=== PATIENT | male | born 1950 | race Caucasian/White ===

== ENCOUNTER 2016-11-13 09:48 | Emergency (ER) | payer OTHER ==
--- NOTE | 2016-11-13 10:09 | EDM.PDOC ---
ED HPI GENERAL MEDICAL PROBLEM - General Chief Complaint: Upper Extremity Injury/Pain Stated Complaint: RUE pain Time Seen by Provider: 11/13/16 10:09 Source of Information: Reports: Family (), Old Records ([facility] chart/EMR) History Limitations: Reports: No Limitations - History of Present Illness INITIAL COMMENTS - FREE TEXT/NARRATIVE: The patient was brought to the emergency room via private automobile by his for evaluation of persistent intermittent right elbow and forearm pain with some swelling [place] about 15:00 hours on 11/09/16. Patient was using a wrench on the tractor when the wrench slipped off and he hit his right elbow on the tractor battery. No significant immediate symptoms, however subsequent progressive right elbow and forearm pain with some mild swelling. No previous injury or fracture to this extremity with the patient being right-handed. Symptoms have been refractory to ice therapy and OTC Tylenol use with patient also taking 400 mg of Advil at 6 AM this morning. He denies any paresthesias, neurological deficits, or other complaints or injuries. The patient denies any chest pain/pressure, heart flutter, dizziness, orthostasis, orthopnea, diaphoresis, paresthesias, recent decreased exercise tolerance, or any other anginal-type symptoms. No recent history of abdominal pain, heartburn, nausea, diarrhea, melena, gross hematochezia, or any food intolerance, including fatty foods, etc.. The patient also denies any recent fever, cough, wheezing, dyspnea, etc.. Onset: Sudden Onset Date: 11/09/16 Onset Time: 15:00 Duration: Getting Worse, Intermittent (With movement) Location: Reports: Upper Extremity, Right. Denies: Radiates to Quality: Reports: Same as Previous Episode, Throbbing Severity: Moderate Improves with: Reports: Rest Worsens with: Reports: Movement Context: Reports: Trauma (As above) Associated Symptoms: Denies: Confusion, Chest Pain, Cough, Diaphoresis, Fever/ Chills, Nausea/Vomiting, Seizure, Shortness of Breath, Syncope, Weakness Treatments VISUAL ARTIST: Reports: Acetaminophen, Cold Therapy, NSAIDS Right Elbow Pain Score (Numeric/FACES): 5 - Related Data Allergies Allergy/AdvReac Type Severity Reaction Status Date / Time No Known Allergies Allergy Verified 08/28/15 10:05 Home Meds: Home Meds Aspirin 81 mg PO QAM 01/25/15 [History] Metoprolol Succinate [Toprol XL] 50 mg PO QPM 01/25/15 [History] Ranitidine [Zantac] 150 mg PO QPM 01/25/15 [History] Losartan [Cozaar] 50 mg PO DAILY 08/14/15 [History] Acetaminophen [Tylenol Arthritis] 2 tab PO BID 12/26/15 [History] Potassium 99 mg PO DAILY 12/26/15 [History] Febuxostat [Uloric] 20 mg PO BID 11/13/16 [History] Folic Acid 1 mg PO QAM 11/13/16 [History] Leflunomide 10 mg PO QAM 11/13/16 [History] predniSONE [Prednisone] 10 mg PO QAM 11/13/16 [History] Past Medical History HEENT History: Reports: Impaired Vision, Other (See Below). Denies: Allergic Rhinitis, Hard of Hearing Other HEENT History: Wears glasses Cardiovascular History: Reports: Arrhythmia, High Cholesterol, Hypertension, Other (See Below). Denies: [place] Other Cardiovascular History: Complete right bundle branch block diagnosed on with apparent subsequent negative heart catheterization as below Respiratory History: Reports: COPD, Other (See Below) Other Respiratory History: COPD and pulmonary fibrosis by chest x-ray with no current treatment Gastrointestinal History: Reports: GERD. Denies: Chronic Constipation, Chronic Diarrhea, Colon Polyp, Gastritis, GI Bleed, Hepatitis, Helicobacter Pylori, Pancreatitis, PUD Genitourinary History: Reports: None Musculoskeletal History: Reports: Arthritis, Back Pain, Chronic, Gout, Neck Pain , Chronic, Osteoarthritis, RA, Other (See Below). 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 Denies: Anxiety, Depression 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 Endocrine/Metabolic History: Reports: Other (See Below) Other Endocrine/Metabolic History: Hyperglycemia with no previous treatment Hematologic History: Reports: Blood Transfusion(s), Other (See Below) Other Hematologic History: Blood transfusion at age 13 secondary to head trauma as above Immunologic History: Reports: None Dermatologic History: Reports: Eczema Other Dermatologic History: Eczema not currently under therapy - Infectious Disease History Infectious Disease History: Reports: C-Difficile, Chicken Pox, Measles. Denies : Shingles - Past Surgical History Head Surgeries/Procedures: Reports: Other (See Below) Other Head Surgeries/Procedures: Right-sided skull plate secondary to trauma at age 13 as above - Past Imaging History Past Imaging History: Reports: Angiography (Heart catheterization on 01/25/15 versus 01/26/15), CAT Scan (CT of the head and sinuses on 10/10/11), Ultrasound ( Abdominal ultrasound on 07/18/07), Venous Doppler (Bilateral venous Doppler studies of the lower extremities on 04/08/15 with previous venous Doppler study of the right leg on 04/27/11) Social & Family History - Family History Family Medical History: Noncontributory Cardiac: Reports: Hypertension, Other (See Below) Other Cardiac Family History: Mother and paternal uncle with hypertension Respiratory: Reports: COPD, Other (See Below) Other Respiratory Family Hisory: Father with COPD and history of tobacco use Neurological: Reports: Parkinson's, Other (See Below) Other Neurological Family History: Paternal uncle with Parkinson's disease - Tobacco Use Smoking Status *Q: Former Smoker Tobacco Use Within Last Twelve Months: No Years of Tobacco use: 41 Packs/Tins Daily: 1 (Maximum use of 1.5 packs per day) Used Tobacco, but Quit: Yes Month Tobacco Last Used: Quit in 2008 Smoking Cessation Information Provided To Patient: No Second Hand Smoke Exposure: No Second Hand Smoke Education Provided: No - Caffeine Use Caffeine Use: Reports: Soda (With mixed drinks as below). Denies: Coffee, Energy Drinks, Tea - Alcohol Use Alcohol Use History: Yes Days Per Week of Alcohol Use: 7 (No previous DWIs, problems with alcohol abuse, etc.) Number of Drinks Per Day: 4 (Usually mixed drinks) Total Drinks Per Week: 28 Alcohol Use in Last Twelve Months: Yes Alcohol Use Frequency: Daily - Recreational Drug Use Recreational Drug Use: No Drug Use in Last 12 Months: No - Living Situation & Occupation Living situation: Reports: (1972, 3 children), with Family () Occupation: Employed ([employer]) Review of Systems - Review of Systems Review Of Systems: ROS reveals no pertinent complaints other than HPI. ED EXAM, GENERAL - Physical Exam Exam: See Below Exam Limited By: No Limitations General Appearance: Alert, WD/WN, No Apparent Distress Head: Atraumatic, Normocephalic Neck: Normal Inspection, Supple, Non-Tender, Full Range of Motion. No: Lymphadenopathy (L), Lymphadenopathy (R), Thyromegaly Respiratory/Chest: No Respiratory Distress, Lungs Clear, Normal Breath Sounds, No Accessory Muscle Use, Chest Non-Tender. No: Pleural Rub, Retractions Cardiovascular: Normal Peripheral Pulses, Regular Rate, Rhythm, No Edema, No Gallop, No JVD, No Murmur, No Rub. No: Gallop/S3, Gallop/S4, Friction Rub Peripheral Pulses: 4+: Radial (L), Radial (R) GI/Abdominal: Normal Bowel Sounds, Soft, Non-Tender, No Organomegaly, No Distention, No Abnormal Bruit, No Mass, Pelvis Stable. No: Guarding (Male) Exam: Deferred Rectal (Males) Exam: Deferred Back Exam: Normal Inspection, Full Range of Motion. No: CVA Tenderness (L), CVA Tenderness (R), Muscle Spasm Extremities: Normal Range of Motion, No Pedal Edema, Normal Capillary Refill, Joint Swelling (As below), Arm Pain (I'll palpation pain over the right olecranon with mild right elbow effusion and proximal right forearm swelling with no deformity, crepitation, or sign of fracture). No: Erick's Sign, Leg Pain, Increased Warmth Neurological: Alert, Oriented, CN II-XII Intact, Normal Cognition, Normal Gait, No Motor/Sensory Deficits Psychiatric: Normal Affect, Normal Mood Skin Exam: Warm, Dry, Intact, Normal Color, No Rash. No: Diaphoretic, Ecchymosis, Increased Warmth, Petechiae, Wound/Incision Lymphatic: No Adenopathy ED TRAUMA EXTREMITY PROCEDURES - Splinting Right Upper Extremity Pre-Procedure NV Status: Normal Post-Procedure NV Status: Normal Splint Material: Other (Preformed 6" x 30" fiberglass splint material secured with one 2 inch and an additional 6 inch Maulik wrap) Splint Design: Gutter (Long-arm) Applied & Form Fitted By: Provider Provider Post-Splint Application NV Check: NV Status Normal, Good Position Complications: No Course - Vital Signs Last Recorded V/S: Last Vital Signs Temp 36.2 C 11/13/16 11:37 Pulse 89 11/13/16 11:37 Resp 18 11/13/16 11:37 BP 142/77 H 11/13/16 11:37 Pulse Ox 98 11/13/16 11:37 Vital Signs - 24 hr 11/13/16 11/13/16 09:48 11:37 Temperature [ 36.5 C 36.2 C Oral] Pulse, 91 89 Peripheral [ Left Pulse Oximetry] Respiratory 18 18 Rate Blood Pressure 148/87 H 142/77 H [Left Upper Arm ] O2 Sat by Pulse 97 98 Oximetry - Orders/Labs/Meds Orders: Active Orders 24 hr Category Date Time Status Forearm 2V Rt [CR] Stat Exams 11/13/16 10:13 Taken Obtain Past Medical Record [OM.PC] Routine Oth 11/13/16 10:13 Active Labs: None Meds: None - Radiology Interpretation Free Text/Narrative:: X-rays of the right forearm, 2 views, shows evidence of a questionable artifact versus hairline fracture in the supracondylar region of the distal humerus with moderate osteoarthritic changes but no evidence of dislocation, angulation, etc. Departure - Departure Time of Disposition: 11:55 Disposition: Home, Self-Care 01 Condition: Good Clinical Impression: Peptic reflux disease, Complete left bundle branch block (LBBB), Hyperuricemia Contusion Qualifiers: Encounter type: initial encounter Contusion area: elbow Laterality: right Qualified Code(s): S50.01XA - Contusion of right elbow, initial encounter Hypertension Qualifiers: Hypertension type: essential hypertension Qualified Code(s): I10 - Essential ( primary) hypertension COPD (chronic obstructive pulmonary disease) Qualifiers: COPD type: emphysema Emphysema type: panlobular Qualified Code(s): J43.1 - Panlobular emphysema Osteoarthritis Qualifiers: Osteoarthritis location: multiple joints Osteoarthritis type: primary Qualified Code(s): M15.0 - Primary generalized (osteo)arthritis Rheumatoid arthritis Qualifiers: Rheumatoid arthritis location: multiple sites Rheumatoid factor presence: unspecified presence Qualified Code(s): M06.9 - Rheumatoid arthritis, unspecified - Discharge Information Instructions: Cast or Splint Care, [id number], Elbow Contusion Referrals: PCP,Unknown [Ordering Only Provider] - Forms: ED Department Discharge Additional Instructions: 1. Followup with your regular provider in 7 days as directed for reevaluation and possible repeat x-rays of your right forearm. 2. Tylenol 650 mg by mouth every 4 hours and/or OTC ibuprofen 2-3 tabs by mouth every 6 hours with food as directed./needed. 3. Limited use of the right arm as directed with long arm splint to be used at all times until otherwise directed by your regular provider 4. Heating pad, and/or ice packs with arm elevation and sling use as needed/as directed. - Problem List & Annotations (1) Contusion SNOMED Code(s): 820838376 Code(s): T14.8 - OTHER INJURY OF UNSPECIFIED BODY REGION Status: Acute Priority: High Current Visit: Yes Onset Date: 11/09/16 Annotation/Comment: : Questionable right supracondylar fracture as above, however likely artifact. Secondary to patient's symptomatology and persistent forearm swelling the patient was placed in a long arm splint as above with activity restrictions, splint care, etc. extensively discussed. Close follow-up by his regular provider and otherwise symptomatic relief as per discharge instructions. Qualifiers: Encounter type: initial encounter Contusion area: elbow Laterality: right Qualified Code(s): S50.01XA - Contusion of right elbow, initial encounter (2) Hypertension SNOMED Code(s): 95567965 Code(s): I10 - ESSENTIAL (PRIMARY) HYPERTENSION Status: Chronic Priority : Low Current Visit: Yes Annotation/Comment:: Blood pressure stable in the emergency room and otherwise stable by history Qualifiers: Hypertension type: essential hypertension Qualified Code(s): I10 - Essential (primary) hypertension (3) Complete left bundle branch block (LBBB) SNOMED Code(s): 7694176 Code(s): I44.7 - LEFT BUNDLE-BRANCH BLOCK, UNSPECIFIED Status: Chronic Priority: Low Current Visit: Yes Onset Date: 01/25/15 Annotation/Comment: : No recent chest pain or anginal complaints (4) COPD (chronic obstructive pulmonary disease) SNOMED Code(s): 05427489 Code(s): J44.9 - CHRONIC OBSTRUCTIVE PULMONARY DISEASE, UNSPECIFIED Status : Chronic Priority: Low Current Visit: Yes Annotation/Comment:: COPD and pulmonary fibrosis per distant chest x-ray with no treatment to this point and no evidence of previous PFT. No current bronchitic type symptoms, fever, etc. Qualifiers: COPD type: emphysema Emphysema type: panlobular Qualified Code(s): J43.1 - Panlobular emphysema (5) Peptic reflux disease SNOMED Code(s): 02667257 Code(s): K21.9 - GASTRO-ESOPHAGEAL REFLUX DISEASE WITHOUT ESOPHAGITIS Status: Chronic Priority: Low Current Visit: Yes Annotation/Comment:: Stable with current OTC Zantac therapy by history. Distant H. pylori was negative (6) Osteoarthritis SNOMED Code(s): 964095606 Code(s): M19.90 - UNSPECIFIED OSTEOARTHRITIS, UNSPECIFIED SITE Status: Chronic Priority: Medium Current Visit: Yes Annotation/Comment:: Otherwise stable by history with no recent history of gout attacks Qualifiers: Osteoarthritis location: multiple joints Osteoarthritis type: primary Qualified Code(s): M15.0 - Primary generalized (osteo)arthritis (7) Rheumatoid arthritis SNOMED Code(s): 13786288 Code(s): M06.9 - RHEUMATOID ARTHRITIS, UNSPECIFIED Status: Chronic Priority: Medium Current Visit: Yes Annotation/Comment:: Stable by history Qualifiers: Rheumatoid arthritis location: multiple sites Rheumatoid factor presence: unspecified presence Qualified Code(s): M06.9 - Rheumatoid arthritis, unspecified - Problem List Review Problem List Initiated/Reviewed/Updated: Yes - My Orders Last 24 Hours: My Active Orders 11/13/16 10:13 Forearm 2V Rt [CR] Stat Obtain Past Medical Record [OM.PC] Routine - Assessment/Plan Last 24 Hours: My Active Orders 11/13/16 10:13 Forearm 2V Rt [CR] Stat Obtain Past Medical Record [OM.PC] Routine Assessment:: As above Plan: As above. Extensive precautions were given to the patient and his , who are agreement with the treatment plan. See Patient Instructions for further treatment and plan.
[2016-11-13 11:38] VITALS: BP 142/77
== END 2016-11-13 11:55 | disposition home or self-care (01) ==
LOC: LL.ED 09:48
DX: S50.01XA Contusion of right elbow, initial encounter (principal); I44.7 Left bundle-branch block, unspecified; J43.1 Panlobular emphysema; E79.0 Hyperuricemia without signs of inflammatory arthritis and tophaceous disease; M15.0 Primary generalized (osteo)arthritis; M06.9 Rheumatoid arthritis, unspecified; E78.00 Pure hypercholesterolemia, unspecified; I10 Essential (primary) hypertension; Z79.82 Long term (current) use of aspirin; Z87.891 Personal history of nicotine dependence; Z79.899 Other long term (current) drug therapy; W22.8XXA Striking against or struck by other objects, initial encounter
CPT/HCPCS: 73090-RT; 99282; 99284

== ENCOUNTER 2017-01-03 10:28 | Emergency (ER) | payer OTHER ==
--- NOTE | 2017-01-03 11:28 | EDM.PDOC ---
ED HPI GENERAL MEDICAL PROBLEM - General Chief Complaint: General Stated Complaint: Fever, Body Aches Time Seen by Provider: 01/03/17 11:02 Source of Information: Reports: Patient, Family History Limitations: Reports: No Limitations - History of Present Illness INITIAL COMMENTS - FREE TEXT/NARRATIVE: Patient brought in by private vehicle for complaint of fatigue and generalized aches. Has some "pressure" sensation in chest. When visiting with nurse, he described it as a congestion feeling. However patient denied congestion with jingle writer. He has a chronic cough. That has not changed. Decreased appetite. Weaker. Denies headache. No HEENT changes. No SOB or respiratory changes other than the pressure sensation discussed above. GI negative for nausea/emesis/bowel changes/abdominal pain. No changes. No acute swelling or edema. No skin changes. Patient does report visual issues with left eye that have been present for months and are being worked up. Also has some residual swelling in right hand after wearing splint on right arm this past spring. Has rheumatoid arthritis and is on medications for this. Generalized Pain Score (Numeric/FACES): 6 - Related Data Allergies Allergy/AdvReac Type Severity Reaction Status Date / Time No Known Allergies Allergy Verified 08/28/15 10:05 Home Meds: Home Meds Aspirin 81 mg PO QAM 01/25/15 [History] Metoprolol Succinate [Toprol XL] 50 mg PO QPM 01/25/15 [History] Ranitidine [Zantac] 150 mg PO QPM 01/25/15 [History] Losartan [Cozaar] 50 mg PO DAILY 08/14/15 [History] Potassium 99 mg PO DAILY 12/26/15 [History] Febuxostat [Uloric] 20 mg PO BID 11/13/16 [History] Folic Acid 1 mg PO QAM 11/13/16 [History] Leflunomide 20 mg PO QAM 11/13/16 [History] predniSONE [Prednisone] 5 mg PO QAM 11/13/16 [History] Doxycycline [Vibramycin] 100 mg PO Q12HR #30 cap 01/03/17 [Rx] Past Medical History HEENT History: Reports: Impaired Vision, Other (See Below) Other HEENT History: Wears glasses Cardiovascular History: Reports: Arrhythmia, High Cholesterol, Hypertension, Other (See Below) Other Cardiovascular History: Complete right bundle branch block diagnosed on with apparent subsequent negative heart catheterization as below Respiratory History: Reports: COPD, Other (See Below) Other Respiratory History: COPD and pulmonary fibrosis by chest x-ray with no current treatment Gastrointestinal History: Reports: GERD Genitourinary History: Reports: None Musculoskeletal History: Reports: Arthritis, Back Pain, Chronic, Gout, Neck Pain , Chronic, Osteoarthritis, RA, Other (See Below) Other Musculoskeletal History: Hyperuricemia without history of gout Neurological History: Reports: Brain Injury, Concussion, Head Trauma, Neuropathy , Peripheral, Other (See Below) Other Neuro History: Head concussion at age 13 with metallic plate placed secondary to skull fracture with partial left-sided hemiparesis for about 1 week with no significant remaining deficits, 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 Psychiatric History: Reports: None, Other (See Below) 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 Endocrine/Metabolic History: Reports: Other (See Below) Other Endocrine/Metabolic History: Hyperglycemia with no previous treatment Hematologic History: Reports: Blood Transfusion(s), Other (See Below) Other Hematologic History: Blood transfusion at age 13 secondary to head trauma as above Immunologic History: Reports: None Dermatologic History: Reports: Eczema Other Dermatologic History: Eczema not currently under therapy - Infectious Disease History Infectious Disease History: Reports: C-Difficile, Chicken Pox, Measles - Past Surgical History Head Surgeries/Procedures: Reports: Other (See Below) - Past Imaging History Past Imaging History: Reports: Angiography (Heart catheterization on 01/25/15 versus 01/26/15), CAT Scan (CT of the head and sinuses on 10/10/11), Ultrasound ( Abdominal ultrasound on 07/18/07), Venous Doppler (Bilateral venous Doppler studies of the lower extremities on 04/08/15 with previous venous Doppler study of the right leg on 04/27/11) Social & Family History - Family History Family Medical History: Noncontributory Cardiac: Reports: Hypertension, Other (See Below) Other Cardiac Family History: Mother and paternal uncle with hypertension Respiratory: Reports: COPD, Other (See Below) Other Respiratory Family Hisory: Father with COPD and history of tobacco use Neurological: Reports: Parkinson's, Other (See Below) Other Neurological Family History: Paternal uncle with Parkinson's disease - Tobacco Use Smoking Status *Q: Former Smoker Years of Tobacco use: 41 Packs/Tins Daily: 1 Used Tobacco, but Quit: Yes Month Tobacco Last Used: Quit in 2008 Second Hand Smoke Exposure: No - Caffeine Use Caffeine Use: Reports: Soda - Alcohol Use Days Per Week of Alcohol Use: 7 Number of Drinks Per Day: 4 Total Drinks Per Week: 28 - Recreational Drug Use Recreational Drug Use: No Drug Use in Last 12 Months: No - Living Situation & Occupation Living situation: Reports: (1972, 3 children), with Family () Occupation: Employed ([employer]) ED ROS GENERAL - Review of Systems Review Of Systems: See Below Constitutional: Reports: Chills, Malaise, Weakness, Fatigue, Decreased Appetite. Denies: Fever (has felt warm sometimes, but no measured fever), Night Sweats, Diaphoresis, Weight Loss, Weight Gain HEENT: Reports: No Symptoms Respiratory: Reports: Cough (has chronic unchanged cough). Denies: Shortness of Breath, Wheezing, Pleuritic Chest Pain, Sputum, Hemoptysis Cardiovascular: Reports: Other (see HPI for fullness sensation). Denies: Chest Pain, Dyspnea on Exertion, Edema, Lightheadedness, Orthopnea, Palpitations Endocrine: Reports: No Symptoms GI/Abdominal: Reports: No Symptoms. Denies: Abdominal Pain, Constipation, Diarrhea, Nausea, Vomiting : Reports: No Symptoms Musculoskeletal: Reports: Muscle Pain (generalized achiness all over). Denies: Joint Swelling, Muscle Stiffness Skin: Reports: No Symptoms. Denies: Rash Neurological: Reports: Weakness. Denies: Confusion, Dizziness, Headache, Paresthesia, Seizure, Syncope, Tingling, Tremors, Trouble Speaking, Difficulty Walking, Change in Speech, Gait Disturbance Psychiatric: Reports: No Symptoms Hematologic/Lymphatic: Reports: No Symptoms ED EXAM, GENERAL - Physical Exam Exam: See Below Exam Limited By: No Limitations General Appearance: Alert, No Apparent Distress, Obese Eye Exam: Bilateral Eye: EOMI, Normal Inspection, PERRL Ears: Normal External Exam, Normal Canal, Hearing Grossly Normal, Normal TMs Nose: Normal Inspection, Normal Mucosa, No Blood Throat/Mouth: Normal Inspection, Normal Lips, Normal Teeth, Normal Gums, Normal Oropharynx, Normal Voice Head: Atraumatic, Normocephalic Neck: Normal Inspection, Supple, Non-Tender, Full Range of Motion. No: Carotid Bruit, Lymphadenopathy (L), Lymphadenopathy (R) Respiratory/Chest: No Respiratory Distress, Lungs Clear, Normal Breath Sounds, No Accessory Muscle Use, Chest Non-Tender Cardiovascular: Normal Peripheral Pulses, Regular Rate, Rhythm, No Edema, No JVD , No Murmur Peripheral Pulses: 2+: Radial (L), Radial (R) GI/Abdominal: Normal Bowel Sounds, Soft, Non-Tender, No Distention, No Mass (Male) Exam: Deferred Rectal (Males) Exam: Deferred Back Exam: Normal Inspection. No: CVA Tenderness (L), CVA Tenderness (R), Muscle Spasm, Paraspinal Tenderness, Vertebral Tenderness Extremities: Normal Inspection, Normal Range of Motion, Non-Tender, No Pedal Edema, Normal Capillary Refill Neurological: Alert, Oriented, Normal Cognition, No Motor/Sensory Deficits Psychiatric: Normal Affect, Normal Mood Skin Exam: Warm, Dry, Intact, Normal Color Course - Vital Signs Last Recorded V/S: Last Vital Signs Temp 36.8 C 01/03/17 10:31 Pulse 76 01/03/17 12:15 Resp 16 01/03/17 12:15 BP 157/79 H 01/03/17 12:15 Pulse Ox 99 01/03/17 11:45 - Orders/Labs/Meds Orders: Active Orders 24 hr Category Date Time Status Chest 2V [CR] Stat Exams 01/03/17 11:21 Taken LYME/B.BURGDORFERI IGG/IGM [REF] Stat Lab 01/03/17 11:45 Received [facility] IGM [REF] Routine Lab 01/03/17 11:45 Received Labs: Laboratory Tests 01/03/17 01/03/17 01/03/17 Range/Units 11:45 11:45 11:45 WBC 7.7 (4.0-10.2) K/uL RBC 4.35 (4.33-5.41) M/uL Hgb 13.6 (13.1-16.8) g/dL Hct 40.9 (39.0-49.0) % MCV 94.0 D (84.0-98.0) fL MCH 31.3 (28.2-33.3) pg MCHC 33.3 (31.7-36.0) g/dL RDW 14.4 H (11.2-14.1) % Plt Count 218 (150-350) K/uL Neut % (Auto) 75.9 (45.0-80.0) % Lymph % (Auto) 10.1 (10.0-50.0) % [place] % (Auto) 11.5 (2.0-14.0) % Eos % (Auto) 2.1 (0.0-5.0) % Baso % (Auto) 0.4 (0.0-2.0) % Neut # (Auto) 5.88 (1.40-7.00) K/uL Lymph # (Auto) 0.78 (0.50-3.50) K/uL Bremer # (Auto) 0.89 (0.00-1.00) K/uL Eos # (Auto) 0.16 (0.00-0.50) K/uL Baso # (Auto) 0.03 (0.00-0.20) K/uL Sodium 139 (136-145) mmol/L Potassium 3.8 (3.5-5.1) mmol/L Chloride 100 (98-107) mmol/L Carbon Dioxide 28.6 (21.0-32.0) mmol/L BUN 14 (7-18) mg/dL Creatinine 0.85 (0.51-1.17) mg/dL Est Cr Clr Drug Dosing 95.76 mL/min Estimated GFR (MDRD) > 60 mL/min Glucose 120 H (74-106) mg/dL Lactic Acid 1.7 (0.4-2.0) mmol/L Calcium 9.2 (8.5-10.1) mg/dL Total Bilirubin 0.8 (0.2-1.0) mg/dL AST 26 (15-37) U/L ALT 22 (12-78) U/L Alkaline Phosphatase 90 (46-116) IU/L Creatine Kinase 72 (26-308) U/L Creatine Kinase Index 1.3 (0.0-2.5) % CK-MB (CK-2) 0.90 (0.00-3.60) ng/mL Troponin I 0.000 (0.000-0.056) ng/mL Total Protein 8.0 (6.4-8.2) g/dL Albumin 2.9 L (3.4-5.0) g/dL Specimen Type Urine Color Urine Appearance Urine pH (5.0-9.0) Ur Specific [place] (1.005-1.030) Urine Protein (NEGATIVE) mg/dL Urine Glucose (UA) (NEGATIVE) mg/dL Urine Ketones (NEGATIVE) mg/dL Urine Occult Blood (NEGATIVE) Urine Nitrite (NEGATIVE) Urine Bilirubin (NEGATIVE) Urine Urobilinogen (0.2-1.0) E.U./dL Ur Leukocyte Esterase (NEGATIVE) Urine RBC /HPF Urine WBC /HPF Ur Epithelial Cells /LPF Urine Bacteria (NONE TO FEW) /HPF Ethyl Alcohol 0.000 (0.000-0.080) g/dL 01/03/17 Range/Units 13:15 WBC (4.0-10.2) K/uL RBC (4.33-5.41) M/uL Hgb (13.1-16.8) g/dL Hct (39.0-49.0) % MCV (84.0-98.0) fL MCH (28.2-33.3) pg MCHC (31.7-36.0) g/dL RDW (11.2-14.1) % Plt Count (150-350) K/uL Neut % (Auto) (45.0-80.0) % Lymph % (Auto) (10.0-50.0) % Bre[place] % (Auto) (2.0-14.0) % Eos % (Auto) (0.0-5.0) % Baso % (Auto) (0.0-2.0) % Neut # (Auto) (1.40-7.00) K/uL Lymph # (Auto) (0.50-3.50) K/uL [place]mer # (Auto) (0.00-1.00) K/uL Eos # (Auto) (0.00-0.50) K/uL Baso # (Auto) (0.00-0.20) K/uL Sodium (136-145) mmol/L Potassium (3.5-5.1) mmol/L Chloride (98-107) mmol/L Carbon Dioxide (21.0-32.0) mmol/L BUN (7-18) mg/dL Creatinine (0.51-1.17) mg/dL Est Cr Clr Drug Dosing mL/min Estimated GFR (MDRD) mL/min Glucose (74-106) mg/dL Lactic Acid (0.4-2.0) mmol/L Calcium (8.5-10.1) mg/dL Total Bilirubin (0.2-1.0) mg/dL AST (15-37) U/L ALT (12-78) U/L Alkaline Phosphatase (46-116) IU/L Creatine Kinase (26-308) U/L Creatine Kinase Index (0.0-2.5) % CK-MB (CK-2) (0.00-3.60) ng/mL Troponin I (0.000-0.056) ng/mL Total Protein (6.4-8.2) g/dL Albumin (3.4-5.0) g/dL Specimen Type Urinblad Urine Color Yellow Urine Appearance Clear Urine pH 7.0 (5.0-9.0) Ur Specific [place] 1.020 (1.005-1.030) Urine Protein Trace H (NEGATIVE) mg/dL Urine Glucose (UA) Negative (NEGATIVE) mg/dL Urine Ketones Negative (NEGATIVE) mg/dL Urine Occult Blood Negative (NEGATIVE) Urine Nitrite Negative (NEGATIVE) Urine Bilirubin Small H (NEGATIVE) Urine Urobilinogen 0.2 (0.2-1.0) E.U./dL Ur Leukocyte Esterase Negative (NEGATIVE) Urine RBC 0-5 /HPF Urine WBC Not seen /HPF Ur Epithelial Cells Not seen /LPF Urine Bacteria Not seen (NONE TO FEW) /HPF Ethyl Alcohol (0.000-0.080) g/dL - Radiology Interpretation Free Text/Narrative:: No acute infiltrate noted on chest film. - Re-Assessments/Exams Free Text/Narrative Re-Assessment/Exam: 01/03/17 14:11 CBC, Chem, UA, Trop/CKMB overall normal. electrical fitter showed sinus rhythm. Vital signs stable. Patient afebrile. Non-focal exam. Not able to identify cause of patient's complaints. Cannot rule out viral syndrome. Given that he is outside most of the time, tick panel and West Nile added to labs. At this time plan is to discharge patient from ER and start him on course of Doxy. He and are to continue to observe for changes/new symptoms. They are to follow up in ER or clinic if worsening symptoms are noted or if he is not improved within 2-3 days. Departure - Departure Time of Disposition: 13:52 Disposition: Home, Self-Care 01 Condition: Good Clinical Impression: Weakness generalized, Generalized muscle ache - Discharge Information Prescriptions: Doxycycline [Vibramycin] 100 mg PO Q12HR #30 cap Instructions: Doxycycline tablets or capsules Referrals: Neris Renee PA [Primary Care Provider] - Forms: ED Department Discharge Additional Instructions: Observe for any additional changes. Follow up for recheck if you get worse. Follow up if symptoms are not improving within 2-3 days. - My Orders Last 24 Hours: My Active Orders 01/03/17 11:21 Chest 2V [CR] Stat 01/03/17 11:45 LYME/B.BURGDORFERI IGG/IGM [REF] Stat [facility] IGM [REF] Routine - Assessment/Plan Last 24 Hours: My Active Orders 01/03/17 11:21 Chest 2V [CR] Stat 01/03/17 11:45 LYME/B.BURGDORFERI IGG/IGM [REF] Stat [facility] IGM [REF] Routine
[2017-01-03 12:26] LABS: CHLORIDE,CL 100 mmol/L (98-107); SODIUM,NA 139 mmol/L (136-145)
[2017-01-03 16:01] VITALS: BP 147/77
== END 2017-01-03 14:00 | disposition home or self-care (01) ==
LOC: LL.ED 10:28
DX: R53.1 Weakness (principal); M79.1 Myalgia; H54.7 Unspecified visual loss; E78.00 Pure hypercholesterolemia, unspecified; I10 Essential (primary) hypertension; J44.9 Chronic obstructive pulmonary disease, unspecified; K21.9 Gastro-esophageal reflux disease without esophagitis; Z87.891 Personal history of nicotine dependence; Z79.82 Long term (current) use of aspirin; Z79.899 Other long term (current) drug therapy
CPT/HCPCS: 36415; 71020; 80053; 81001; 82550; 82553; 83605; 84484; 85025; 86618; 86788; 99284; G0480

== ENCOUNTER 2017-08-13 14:12 | Inpatient (IN) | payer OTHER ==
[2017-08-13] MEDS ORDERED: Sodium Chloride 0.9% 500 ML IV SCH (15:00)
[2017-08-13] MEDS ORDERED: Furosemide 20 MG/2 ML VIAL IVPUSH ONE (15:08)
[2017-08-13] MEDS ORDERED: Albuterol/Ipratropium 3.0-0.5 MG/3 ML Neb Soln NEB PRN (15:11)
[2017-08-13] MEDS: Sodium Chloride 0.9% 10 ML Syringe FLUSH PRN ×3 (16:01→21:39)
[2017-08-13] MEDS: cefTAZidime 1 GM Vial IVPUSH SCH (16:03)
[2017-08-13] MEDS: Albuterol/Ipratropium 3.0-0.5 MG/3 ML Neb Soln NEB SCH ×2 (16:03→20:52)
[2017-08-13] MEDS: Azithromycin 500 MG in Sodium Chloride 0.9% 250 ML IV SCH (16:05)
--- NOTE | 2017-08-13 16:16 | PCM.HP ---
H&P History of Present Illness - General Date of Service: 08/13/17 Admit Problem/Dx: Admission Diagnosis/Problem Admission Diagnosis/Problem Pneumonia Source of Information: Patient, Family History Limitations: Reports: No Limitations - History of Present Illness Onset of Symptoms: Reports: Gradual Symptom Onset Date: 07/30/17 Duration of Symptoms: Reports: Day(s): (was treated 2 wks ago for COPD exacerbation, symptoms improved then intermittently worsened until worst of all last night) Location: Reports: Chest Improves with: Reports: Rest Worsens with: Reports: Other (worse when laying down), Movement (SOB worsens with exertion) Associated Symptoms: Reports: Chest Pain (says "not really pain but pressure when laying flat"), Cough, Fever/Chills, Malaise, Shortness of Breath, Weakness - Related Data Allergies/Adverse Reactions: Allergies Allergy/AdvReac Type Severity Reaction Status Date / Time No Known Allergies Allergy Verified 08/28/15 10:05 Home Medications: Home Meds Aspirin 81 mg PO QAM 01/25/15 [History] Metoprolol Succinate [Toprol XL] 50 mg PO QPM 01/25/15 [History] Losartan [Cozaar] 50 mg PO DAILY 08/14/15 [History] Febuxostat [Uloric] 40 mg PO BID 11/13/16 [History] Folic Acid 1 mg PO QAM 11/13/16 [History] Leflunomide 20 mg PO QAM 11/13/16 [History] predniSONE [Prednisone] 10 mg PO QAM 11/13/16 [History] Budesonide/Formoterol Fumarate [Symbicort 80-4.5 Mcg Inhaler] 2 puff INH BID [History] Past Medical History HEENT History: Reports: Impaired Vision, Other (See Below) Other HEENT History: Wears glasses Cardiovascular History: Reports: Arrhythmia, High Cholesterol, Hypertension, Other (See Below) Other Cardiovascular History: Complete right bundle branch block diagnosed on with apparent subsequent negative heart catheterization as below Respiratory History: Reports: COPD, Other (See Below) Other Respiratory History: COPD and pulmonary fibrosis by chest x-ray with no current treatment Gastrointestinal History: Reports: GERD Genitourinary History: Reports: None Musculoskeletal History: Reports: Arthritis, Back Pain, Chronic, Gout, Neck Pain , Chronic, Osteoarthritis, RA, Other (See Below) Other Musculoskeletal History: Hyperuricemia without history of gout Neurological History: Reports: Brain Injury, Concussion, Head Trauma, Neuropathy , Peripheral, Other (See Below) Other Neuro History: Head concussion at age 13 with metallic plate placed secondary to skull fracture with partial left-sided hemiparesis for about 1 week with no significant remaining deficits, 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 Psychiatric History: Reports: None, Other (See Below) 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 Endocrine/Metabolic History: Reports: Other (See Below) Other Endocrine/Metabolic History: Hyperglycemia with no previous treatment Hematologic History: Reports: Blood Transfusion(s), Other (See Below) Other Hematologic History: Blood transfusion at age 13 secondary to head trauma as above Immunologic History: Reports: None Dermatologic History: Reports: Eczema Other Dermatologic History: Eczema not currently under therapy - Infectious Disease History Infectious Disease History: Reports: C-Difficile, Chicken Pox, Measles - Past Surgical History Head Surgeries/Procedures: Reports: Other (See Below) - Past Imaging History Past Imaging History: Reports: Angiography (Heart catheterization on 01/25/15 versus 01/26/15), CAT Scan (CT of the head and sinuses on 10/10/11), Ultrasound ( Abdominal ultrasound on 07/18/07), Venous Doppler (Bilateral venous Doppler studies of the lower extremities on 04/08/15 with previous venous Doppler study of the right leg on 04/27/11) Social & Family History - Family History Family Medical History: Noncontributory Cardiac: Reports: Hypertension, Other (See Below) Other Cardiac Family History: Mother and paternal uncle with hypertension Respiratory: Reports: COPD, Other (See Below) Other Respiratory Family Hisory: Father with COPD and history of tobacco use Neurological: Reports: Parkinson's, Other (See Below) Other Neurological Family History: Paternal uncle with Parkinson's disease - Tobacco Use Smoking Status *Q: Former Smoker Years of Tobacco use: 50 Packs/Tins Daily: 1 Used Tobacco, but Quit: Yes Month/Year Tobacco Last Used: 0 Second Hand Smoke Exposure: No - Caffeine Use Caffeine Use: Reports: Soda - Alcohol Use Days Per Week of Alcohol Use: 7 Number of Drinks Per Day: 3 Total Drinks Per Week: 21 Date of Last Drink: 08/12/17 - Recreational Drug Use Recreational Drug Use: No Drug Use in Last 12 Months: No - Living Situation & Occupation Living situation: Reports: (1972, 3 children), with Family () Occupation: Employed ([employer]) H&P Review of Systems - Review of Systems: Review Of Systems: ROS reveals no pertinent complaints other than HPI. Exam - Exam Exam: See Below - Vital Signs Vital Signs: Last Vital Signs Temp 98.5 F 08/13/17 15:55 Pulse 90 08/13/17 15:55 Resp 20 08/13/17 15:55 BP 151/94 H 08/13/17 15:55 Pulse Ox 92 L 08/13/17 15:55 Weight: 174 lb 1.6 oz - Exam Quality Assessment: Supplemental Oxygen (applied at [facility] after O2 sat 87% on RA) General: Alert, Oriented, Mild Distress HEENT: EOMI, Hearing Intact, Mucosa Moist & [place] Neck: Supple, Trachea Midline, 2 Lungs: Decreased Breath Sounds, Crackles, Wheezing (very faint wheezes) Cardiovascular: Regular Rate, Regular Rhythm GI/Abdominal Exam: Normal Bowel Sounds, Soft, Non-Tender (Male) Exam: Deferred Rectal (Males) Exam: Deferred Back Exam: Normal Inspection Extremities: No Pedal Edema Neuro Extensive - Mental Status: Alert, Oriented x3 Psychiatric: Alert, Anxious *Q Meaningful Use (ADM) - VTE *Q VTE Criteria *Q: - Stroke *Q Stroke Criteria *Q: - AMI *Q AMI Criteria *Q: - Problem List (1) Pneumonia SNOMED Code(s): 667076559 ICD Code: J18.9 - PNEUMONIA, UNSPECIFIED ORGANISM Status: Acute Priority : High Current Visit: Yes Qualifiers: Pneumonia type: due to unspecified organism Laterality: left Lung location: lower lobe of lung Qualified Code(s): J18.1 - Lobar pneumonia, unspecified organism (2) COPD (chronic obstructive pulmonary disease) SNOMED Code(s): 17093339 ICD Code: J44.9 - CHRONIC OBSTRUCTIVE PULMONARY DISEASE, UNSPECIFIED Status : Chronic Priority: High Current Visit: No Qualifiers: COPD type: emphysema Emphysema type: panlobular Qualified Code(s): J43.1 - Panlobular emphysema Problem List Initiated/Reviewed/Updated: Yes Orders Last 24hrs: Active Orders 24 hr Category Date Time Status Patient Status [ADT] Routine ADT 08/13/17 14:43 Active Antiembolic Devices [RC] 08,20 Care 08/13/17 14:47 Active Cardiac Monitoring [RC] Q2HR Care 08/13/17 14:44 Active EKG Documentation Completion [RC] ASDIRECTED Care 08/13/17 14:47 Active EKG Documentation Completion [RC] ASDIRECTED Care 08/13/17 15:28 Active Height and Weight [RC] DAILY Care 08/13/17 14:43 Active Intake and Output [RC] QSHIFT Care 08/13/17 14:44 Active Oxygen Therapy [RC] CONTINUOUS Care 08/13/17 14:43 Active Peripheral IV Care [RC] . DIRECTED Care 08/13/17 14:47 Active Pulse Oximetry [RC] CONTINUOUS Care 08/13/17 14:44 Active RT Aerosol Therapy [RC] ASDIRECTED Care 08/13/17 15:12 Active RT Aerosol Therapy [RC] ASDIRECTED Care 08/13/17 15:13 Active Up With Assistance [RC] DAILY Care 08/13/17 14:43 Active VTE/DVT Education [RC] PER UNIT ROUTINE Care 08/13/17 14:43 Active Vital Signs [RC] Q4HR Care 08/13/17 14:43 Active Nothing per Oral Now Diet [DIET] Diet 08/13/17 Dinner Active Chest 2V [CR] Routine Exams 08/13/17 14:10 Taken Echo Comp wo Cont [US] Routine Exams 08/14/17 12:00 Ordered C-REACTIVE PROTEIN [CHEM] AM Lab 08/14/17 05:11 Ordered C-REACTIVE PROTEIN [CHEM] AM Lab 08/15/17 05:11 Ordered C-REACTIVE PROTEIN [CHEM] AM Lab 08/16/17 05:11 Ordered CBC WITH AUTO DIFF [HEME] AM Lab 08/14/17 05:11 Ordered CBC WITH AUTO DIFF [HEME] AM Lab 08/15/17 05:11 Ordered CBC WITH AUTO DIFF [HEME] AM Lab 08/16/17 05:11 Ordered COMPREHENSIVE METABOLIC PN,CMP [CHEM] AM Lab 08/14/17 05:11 Ordered COMPREHENSIVE METABOLIC PN,CMP [CHEM] AM Lab 08/15/17 05:11 Ordered COMPREHENSIVE METABOLIC PN,CMP [CHEM] AM Lab 08/16/17 05:11 Ordered CULTURE BLOOD [BC] Stat Lab 08/13/17 15:00 Received CULTURE BLOOD [BC] Stat Lab 08/13/17 15:10 Received MYCOPLASMA IGM RAPID [MREF] Routine Lab 08/13/17 15:14 Ordered PRO B-TYPE NATRIUR PEPT,BNPPRO [CHEM] DAILY Lab 08/14/17 05:11 Ordered PRO B-TYPE NATRIUR PEPT,BNPPRO [CHEM] DAILY Lab 08/15/17 05:11 Ordered PRO B-TYPE NATRIUR PEPT,BNPPRO [CHEM] DAILY Lab 08/16/17 05:11 Ordered TROPONIN I [CHEM] Routine Lab 08/13/17 20:00 Ordered Albuterol/Ipratropium [DuoNeb 3.0-0.5 MG/3 ML] Med 08/13/17 15:11 Active 3 ml NEB Q4HRRT PRN Albuterol/Ipratropium [DuoNeb 3.0-0.5 MG/3 ML] Med 08/13/17 16:00 Active 3 ml NEB QID Aspirin Med 08/14/17 08:00 Ordered 81 mg PO QAM Azithromycin [Zithromax] 500 mg Med 08/13/17 16:00 Active Sodium Chloride 0.9% [Normal Saline] 250 ml IV Q24H Febuxostat [Uloric] Med 08/13/17 18:00 Ordered 40 mg PO BID Folic Acid Med 08/14/17 08:00 Ordered 1 mg PO QAM Furosemide [Lasix] Med 08/14/17 08:00 Active 20 mg IVPUSH DAILY Losartan [Cozaar] Med 08/14/17 08:00 Ordered 50 mg PO DAILY Metoprolol Succinate [Toprol XL] Med 08/13/17 18:00 Ordered 50 mg PO QPM Sodium Chloride 0.9% [Saline Flush] Med 08/13/17 14:43 Active 10 ml FLUSH ASDIRECTED PRN Sodium Chloride 0.9% [Saline Flush] Med 08/13/17 15:07 Active 10 ml FLUSH ASDIRECTED PRN cefTAZidime [Fortaz] Med 08/13/17 16:00 Active 1 gm IVPUSH Q8HR Antiembolic Hose [OM.PC] Per Unit Routine Oth 08/13/17 14:45 Ordered Blood Culture x2 Reflex Set [OM.PC] Stat Oth 08/13/17 14:43 Ordered Peripheral IV Insertion Adult [OM.PC] Routine Oth 08/13/17 14:43 Ordered Saline Lock Insert [OM.PC] Routine Oth 08/13/17 15:07 Ordered Resuscitation Status Routine Resus Stat 08/13/17 14:43 Ordered EKG 12 Lead [EK] Routine Ther 08/13/17 18:00 Ordered Medication Orders Albuterol/Ipratropium (Duoneb 3.0-0.5 Mg/3 Ml) 3 ml NEB Q4HRRT PRN PRN Reason: Dyspnea Albuterol/Ipratropium (Duoneb 3.0-0.5 Mg/3 Ml) 3 ml NEB QID [facility] Last Admin: 08/13/17 16:03 Dose: 3 ml Aspirin (Aspirin) 81 mg PO QAM JENNIFER Ceftazidime (Fortaz) 1 gm IVPUSH Q8HR [facility] Last Admin: 08/13/17 16:03 Dose: 1 gm Febuxostat (Uloric) 40 mg PO BID JENNIFER Folic Acid (Folic Acid) 1 mg PO QAM [facility] Furosemide (Lasix) 20 mg IVPUSH DAILY [facility] Azithromycin 500 mg/ Sodium (Chloride) 250 mls @ 250 mls/hr IV Q24H [facility] Last Admin: 08/13/17 16:05 Dose: 250 mls/hr Losartan Potassium (Cozaar) 50 mg PO DAILY [facility] Metoprolol Succinate (Toprol Xl) 50 mg PO QPM [facility] Sodium Chloride (Saline Flush) 10 ml FLUSH ASDIRECTED PRN PRN Reason: Keep Vein Open Last Admin: 08/13/17 16:07 Dose: 10 ml Admin: 08/13/17 16:01 Dose: 10 ml Sodium Chloride (Saline Flush) 10 ml FLUSH ASDIRECTED PRN PRN Reason: Keep Vein Open Assessment/Plan Comment:: 08-13-17 Haley Renee PA-C Admitting to Dr. Perez for IP treatment of pneumonia and acute COPD exacerbation. O2 sat was only 87% on RA in the clinic, oxygen applied and sat did come up to 92%. Troponin came back at 0.066, mildly positive - possibly secondary to work of breathing of current illness. EKG did find a LBBB. Repeating troponin and EKG at 1800 today. Did discuss possible transfer to a tertiary facility in [place] with patient and his , they do not want to unless they absolutely have to. If repeat troponins/EKG's would indicate cardiac etiology will need to transfer. Initiating treatment of pneumonia with IV Fortaz and Zithromax, and treating pneumonia and COPD with IV Solu-Medrol. Patient also has indications of possible CHF, and IV Lasix is started and an Echocardiogram is ordered for tomorrow.
[2017-08-13] MEDS: methylPREDNISolone Sodium Succinate 40 MG/1 ML SDV IVPUSH SCH (17:13)
[2017-08-13] MEDS: Metoprolol Succinate 50 MG Tab.ER PO SCH (17:13)
[2017-08-13] MEDS ORDERED: Febuxostat 40 MG Tab PO SCH (18:00)
[2017-08-13] MEDS ORDERED: LORazepam 2 MG/ML SDV IVPUSH PRN (21:07)
[2017-08-14] MEDS: methylPREDNISolone Sodium Succinate 40 MG/1 ML SDV IVPUSH SCH ×4 (00:51→23:31)
[2017-08-14] MEDS: cefTAZidime 1 GM Vial IVPUSH SCH ×4 (00:51→23:31)
[2017-08-14] MEDS: Sodium Chloride 0.9% 10 ML Syringe FLUSH PRN ×9 (00:52→23:32)
[2017-08-14] MEDS: Albuterol/Ipratropium 3.0-0.5 MG/3 ML Neb Soln NEB SCH ×4 (07:50→19:54)
[2017-08-14] MEDS: Folic Acid 1 MG Tab PO SCH (07:51)
[2017-08-14] MEDS: Losartan 50 MG Tab PO SCH (07:51)
[2017-08-14] MEDS: Aspirin 81 MG Tab.Chew PO SCH (07:51)
[2017-08-14] MEDS: Furosemide 20 MG/2 ML VIAL IVPUSH SCH (07:51)
[2017-08-14 07:59] LABS: CHLORIDE,CL 101 mmol/L (98-107); SODIUM,NA 139 mmol/L (136-145)
[2017-08-14] MEDS: Febuxostat 40 MG Tab PO SCH ×2 (11:34→17:45)
[2017-08-14] MEDS: Azithromycin 500 MG in Sodium Chloride 0.9% 250 ML IV SCH (15:44)
[2017-08-14] MEDS: Metoprolol Succinate 50 MG Tab.ER PO SCH (17:48)
--- NOTE | 2017-08-14 20:21 | PCM.PN ---
- General Info Date of Service: 08/14/17 Admission Dx/Problem (Free Text): Admission Diagnosis/Problem Admission Diagnosis/Problem Pneumonia Functional Status: Reports: Ambulating - Review of Systems General: Reports: Weakness HEENT: Reports: No Symptoms Pulmonary: Reports: Shortness of Breath Cardiovascular: Reports: No Symptoms, Other (no chest pressure) Gastrointestinal: Reports: No Symptoms Genitourinary: Reports: No Symptoms Musculoskeletal: Reports: Joint Swelling Skin: Reports: No Symptoms Neurological: Reports: Weakness Psychiatric: Reports: No Symptoms - Patient Data Vitals - Most Recent: Last Vital Signs Temp 97.4 F 08/14/17 20:00 Pulse 49 L 08/14/17 20:00 Resp 16 08/14/17 20:00 BP 144/78 H 08/14/17 20:00 Pulse Ox 93 L 08/14/17 20:00 Weight - Most Recent: 170 lb I&O - Last 24 Hours: Intake & Output 08/14/17 08/14/17 08/14/17 06:59 14:59 22:59 Intake Total 350 770 Output Total 400 Balance 350 370 Lab Results Last 24 Hours: Laboratory Results - last 24 hr 08/13/17 08/14/17 08/14/17 Range/Units 08:00 07:09 07:09 WBC 11.4 H (4.0-10.2) K/uL RBC 4.16 L (4.33-5.41) M/uL Hgb 13.4 (13.1-16.8) g/dL Hct 40.6 (39.0-49.0) % MCV 97.6 (84.0-98.0) fL MCH 32.2 (28.2-33.3) pg MCHC 33.0 (31.7-36.0) g/dL RDW 15.4 H (11.2-14.1) % Plt Count 162 (150-350) K/uL Neut % (Auto) 96.3 H (45.0-80.0) % Lymph % (Auto) 2.6 L (10.0-50.0) % [place] % (Auto) 1.0 L (2.0-14.0) % Eos % (Auto) 0.0 (0.0-5.0) % Baso % (Auto) 0.1 (0.0-2.0) % Neut # (Auto) 10.98 H (1.40-7.00) K/uL Lymph # (Auto) 0.30 L (0.50-3.50) K/uL [place] # (Auto) 0.11 (0.00-1.00) K/uL Eos # (Auto) 0.00 (0.00-0.50) K/uL Baso # (Auto) 0.01 (0.00-0.20) K/uL Sodium 139 (136-145) mmol/L Potassium 3.1 L (3.5-5.1) mmol/L Chloride 101 (98-107) mmol/L Carbon Dioxide 30.6 (21.0-32.0) mmol/L BUN 19 H (7-18) mg/dL Creatinine 0.78 (0.51-1.17) mg/dL Est Cr Clr Drug Dosing 106.87 mL/min Estimated GFR (MDRD) > 60 mL/min Glucose 161 H (74-106) mg/dL Calcium 8.4 L (8.5-10.1) mg/dL Total Bilirubin 0.5 (0.2-1.0) mg/dL AST 23 (15-37) U/L ALT 21 (12-78) U/L Alkaline Phosphatase 107 (46-116) IU/L Troponin I 0.038 0.010 (0.000-0.056) ng/mL C-Reactive Protein 11.8 H (<=0.9) mg/dL NT-Pro-B Natriuret Pep 3726 H (0-125) pg/mL Total Protein 7.0 (6.4-8.2) g/dL Albumin 2.6 L (3.4-5.0) g/dL [place] Results Last 24 Hours: Microbiology 08/13/17 15:10 Aerobic Blood Culture - Preliminary Blood - Venous - Lab Draw NO GROWTH AFTER 1 DAY Anaerobic Blood Culture - Preliminary NO GROWTH AFTER 1 DAY 08/13/17 15:00 Aerobic Blood Culture - Preliminary Blood - Venous NO GROWTH AFTER 1 DAY Anaerobic Blood Culture - Preliminary NO GROWTH AFTER 1 DAY Med Orders - Current: Current Medications Albuterol/Ipratropium (Duoneb 3.0-0.5 Mg/3 Ml) 3 ml NEB Q4HRRT PRN PRN Reason: Dyspnea Albuterol/Ipratropium (Duoneb 3.0-0.5 Mg/3 Ml) 3 ml NEB QID [facility] Last Admin: 08/14/17 19:54 Dose: 3 ml Aspirin (Aspirin) 81 mg PO QAM [facility] Last Admin: 08/14/17 07:51 Dose: 81 mg Ceftazidime (Fortaz) 1 gm IVPUSH Q8HR [facility] Last Admin: 08/14/17 15:29 Dose: 1 gm Febuxostat (Uloric) 20 mg PO BID [facility] Last Admin: 08/14/17 17:45 Dose: 20 mg Folic Acid (Folic Acid) 1 mg PO QAM [facility] Last Admin: 08/14/17 07:51 Dose: 1 mg Furosemide (Lasix) 20 mg IVPUSH DAILY [facility] Last Admin: 08/14/17 07:51 Dose: 20 mg Azithromycin 500 mg/ Sodium (Chloride) 250 mls @ 250 mls/hr IV Q24H [facility] Last Admin: 08/14/17 15:44 Dose: 250 mls/hr Lorazepam (Ativan) 0.5 mg IVPUSH Q6H PRN PRN Reason: aggitation, CIWAA scale, BP Last Admin: 08/13/17 21:37 Dose: 0.5 mg Losartan Potassium (Cozaar) 50 mg PO DAILY [facility] Last Admin: 08/14/17 07:51 Dose: 50 mg Methylprednisolone Sodium Succinate (Solu-Medrol) 40 mg IVPUSH Q8H [facility] Last Admin: 08/14/17 15:37 Dose: 40 mg Metoprolol Succinate (Toprol Xl) 50 mg PO QPM [facility] Last Admin: 08/14/17 17:48 Dose: 50 mg Sodium Chloride (Saline Flush) 10 ml FLUSH ASDIRECTED PRN PRN Reason: Keep Vein Open Last Admin: 08/14/17 15:36 Dose: 10 ml Sodium Chloride (Saline Flush) 10 ml FLUSH Q12HR [facility] Discontinued Medications Febuxostat (Uloric) 40 mg PO BID [facility] Last Admin: 08/13/17 17:13 Dose: 40 mg Furosemide (Lasix) 20 mg IVPUSH NOW ONE Stop: 08/13/17 15:09 Last Admin: 08/13/17 16:01 Dose: 20 mg Sodium Chloride (Normal Saline) 500 mls @ 100 mls/hr IV ASDIRECTED JENNIFER Sodium Chloride (Saline Flush) 10 ml FLUSH ASDIRECTED PRN PRN Reason: Keep Vein Open Last Admin: 08/14/17 07:53 Dose: 10 ml - Exam General: Alert, Cooperative, No Acute Distress HEENT: Mucous Membr. Moist/[place] Neck: Trachea Midline, No JVD Lungs: Normal Respiratory Effort, Decreased Breath Sounds, Rhonchi (LLL) Cardiovascular: Regular Rate, Regular Rhythm GI/Abdominal Exam: Soft, Non-Tender, No Distention (Male) Exam: Deferred Back Exam: Normal Inspection Extremities: Normal Inspection, Non-Tender, No Pedal Edema Skin: Warm, Dry, Intact Neurological: No New Focal Deficit Psy/Mental Status: Alert, Normal Affect, Normal Mood - Problem List & Annotations (1) Pneumonia SNOMED Code(s): 982200768 Code(s): J18.9 - PNEUMONIA, UNSPECIFIED ORGANISM Status: Acute Priority: High Current Visit: Yes Qualifiers: Pneumonia type: due to unspecified organism Laterality: left Lung location: lower lobe of lung Qualified Code(s): J18.1 - Lobar pneumonia, unspecified organism (2) Back pain at L4-L5 level SNOMED Code(s): 316845730 Code(s): M54.5 - LOW BACK PAIN Status: Acute Priority: Medium Current Visit: No Onset Date: 08/15/15 Annotation/Comment:: Patient has history of chronic back issues. May be acute exacerbation of baseline back problems or possibly may be related to spasm secondary to hypokalemia. (3) Generalized muscle ache SNOMED Code(s): 74272899 Code(s): M79.1 - MYALGIA Status: Acute Current Visit: No (4) Gout SNOMED Code(s): 88109397 Code(s): M10.9 - GOUT, UNSPECIFIED Status: Acute Priority: Low Current Visit: No Onset Date: 08/14/15 Qualifiers: Gout site: elbow Gout etiology: unspecified cause Chronicity: acute Laterality: right Qualified Code(s): M10.9 - Gout, unspecified (5) Weakness generalized SNOMED Code(s): 75250852 Code(s): R53.1 - WEAKNESS Status: Acute Current Visit: No (6) COPD (chronic obstructive pulmonary disease) SNOMED Code(s): 72835921 Code(s): J44.9 - CHRONIC OBSTRUCTIVE PULMONARY DISEASE, UNSPECIFIED Status : Chronic Priority: High Current Visit: No Qualifiers: COPD type: emphysema Emphysema type: panlobular Qualified Code(s): J43.1 - Panlobular emphysema (7) Complete left bundle branch block (LBBB) SNOMED Code(s): 9711623 Code(s): I44.7 - LEFT BUNDLE-BRANCH BLOCK, UNSPECIFIED Status: Chronic Priority: Low Current Visit: No Onset Date: 01/25/15 Annotation/Comment:: No recent chest pain or anginal complaints (8) Hyperglycemia SNOMED Code(s): 51362711 Code(s): R73.9 - HYPERGLYCEMIA, UNSPECIFIED Status: Chronic Priority: Low Current Visit: No Annotation/Comment:: Not previously treated. Consider glycosylated hemoglobin, etc. by accepting physician (9) Hyperlipidemia SNOMED Code(s): 15293835 Code(s): E78.5 - HYPERLIPIDEMIA, UNSPECIFIED Status: Chronic Priority: Medium Current Visit: No Annotation/Comment:: History of fatty liver, including secondary LFTs elevation as above. Distant lipid profile showed only mild hyperlipidemia, however patient would likely benefit from a statin secondary to his current cardiac symptoms. (10) Hypertension SNOMED Code(s): 26257048 Code(s): I10 - ESSENTIAL (PRIMARY) HYPERTENSION Status: Chronic Priority : Low Current Visit: No Qualifiers: Hypertension type: essential hypertension Qualified Code(s): I10 - Essential (primary) hypertension Annotation/Comment:: Blood pressure stable in the emergency room and otherwise stable by history (11) Hyperuricemia SNOMED Code(s): 65642190 Code(s): E79.0 - HYPERURICEMIA W/O SIGNS OF INFLAM ARTHRIT AND TOPHACEOUS DIS Status: Chronic Priority: Medium Current Visit: No Annotation/ Comment:: Uric acid level elevated today with no previous history of gout attacks, however previously known nontreated hyperuricemia (12) Osteoarthritis SNOMED Code(s): 065338959 Code(s): M19.90 - UNSPECIFIED OSTEOARTHRITIS, UNSPECIFIED SITE Status: Chronic Priority: Medium Current Visit: No Qualifiers: Osteoarthritis location: multiple joints Osteoarthritis type: primary Qualified Code(s): M15.0 - Primary generalized (osteo)arthritis Annotation/Comment:: Otherwise stable by history with no recent history of gout attacks (13) Peptic reflux disease SNOMED Code(s): 78774480 Code(s): K21.9 - GASTRO-ESOPHAGEAL REFLUX DISEASE WITHOUT ESOPHAGITIS Status: Chronic Priority: Low Current Visit: No Annotation/Comment:: Stable with current OTC Zantac therapy by history. Distant H. pylori was negative (14) Rheumatoid arthritis SNOMED Code(s): 68972225 Code(s): M06.9 - RHEUMATOID ARTHRITIS, UNSPECIFIED Status: Chronic Priority: Medium Current Visit: No Qualifiers: Rheumatoid arthritis location: multiple sites Rheumatoid factor presence: unspecified presence Qualified Code(s): M06.9 - Rheumatoid arthritis, unspecified Annotation/Comment:: Stable by history - Problem List Review Problem List Initiated/Reviewed/Updated: Yes - My Orders Last 24 Hours: My Active Orders 08/14/17 12:00 Echo Comp wo Cont [US] Routine 08/15/17 08:00 Sodium Chloride 0.9% [Saline Flush] 10 ml FLUSH Q12HR - Plan Plan:: 08-13-17 Haley Renee PA-C Admitting to Dr. Perez for IP treatment of pneumonia and acute COPD exacerbation. O2 sat was only 87% on RA in the clinic, oxygen applied and sat did come up to 92%. Troponin came back at 0.066, mildly positive - possibly secondary to work of breathing of current illness. EKG did find a LBBB. Repeating troponin and EKG at 1800 today. Did discuss possible transfer to a tertiary facility in [place] with patient and his , they do not want to unless they absolutely have to. If repeat troponins/EKG's would indicate cardiac etiology will need to transfer. Initiating treatment of pneumonia with IV Fortaz and Zithromax, and treating pneumonia and COPD with IV Solu-Medrol. Patient also has indications of possible CHF, and IV Lasix is started and an Echocardiogram is ordered for tomorrow. 08/14/17 Ana Tian MD Feels better today but not back to normal. Continue medical therapy.
[2017-08-15] MEDS: Aspirin 81 MG Tab.Chew PO SCH (07:18)
[2017-08-15] MEDS: Losartan 50 MG Tab PO SCH (07:18)
[2017-08-15] MEDS: Folic Acid 1 MG Tab PO SCH (07:19)
[2017-08-15] MEDS: Febuxostat 40 MG Tab PO SCH ×2 (07:19→17:25)
[2017-08-15] MEDS: Furosemide 20 MG/2 ML VIAL IVPUSH SCH (07:20)
[2017-08-15] MEDS: cefTAZidime 1 GM Vial IVPUSH SCH ×3 (07:20→23:26)
[2017-08-15] MEDS: Albuterol/Ipratropium 3.0-0.5 MG/3 ML Neb Soln NEB SCH ×4 (07:20→19:31)
[2017-08-15] MEDS: Sodium Chloride 0.9% 10 ML Syringe FLUSH SCH ×2 (07:21→19:31)
[2017-08-15] MEDS: Sodium Chloride 0.9% 10 ML Syringe FLUSH PRN ×5 (07:34→23:36)
[2017-08-15] MEDS: methylPREDNISolone Sodium Succinate 40 MG/1 ML SDV IVPUSH SCH ×3 (07:37→23:36)
[2017-08-15 08:19] LABS: CHLORIDE,CL 100 mmol/L (98-107); SODIUM,NA 141 mmol/L (136-145)
[2017-08-15] MEDS: Azithromycin 500 MG in Sodium Chloride 0.9% 250 ML IV SCH (15:50)
[2017-08-15] MEDS: Potassium Chloride 20 MEQ Tab.ER PO SCH (17:23)
[2017-08-15] MEDS: Metoprolol Succinate 50 MG Tab.ER PO SCH (17:24)
--- NOTE | 2017-08-15 21:42 | PCM.PN ---
- General Info Date of Service: 08/15/17 Functional Status: Reports: Tolerating Diet, Ambulating - Review of Systems General: Reports: No Symptoms HEENT: Reports: No Symptoms Pulmonary: Reports: Shortness of Breath (improving), Other (still hypoxia) Cardiovascular: Reports: No Symptoms Gastrointestinal: Reports: No Symptoms Genitourinary: Reports: No Symptoms Musculoskeletal: Reports: No Symptoms Skin: Reports: No Symptoms Neurological: Reports: No Symptoms Psychiatric: Reports: No Symptoms - Patient Data Vitals - Most Recent: Last Vital Signs Temp 97.5 F 08/15/17 15:49 Pulse 78 08/15/17 17:24 Resp 17 08/15/17 15:49 BP 116/74 08/15/17 17:24 Pulse Ox 94 L 08/15/17 15:49 Weight - Most Recent: 172 lb 1.6 oz I&O - Last 24 Hours: Intake & Output 08/15/17 08/15/17 08/15/17 06:59 14:59 22:59 Intake Total 440 900 Balance 440 900 Lab Results Last 24 Hours: Laboratory Results - last 24 hr 08/15/17 08/15/17 Range/Units 07:13 07:13 WBC 12.9 H (4.0-10.2) K/uL RBC 4.01 L (4.33-5.41) M/uL Hgb 12.9 L (13.1-16.8) g/dL Hct 39.2 (39.0-49.0) % MCV 97.8 (84.0-98.0) fL MCH 32.2 (28.2-33.3) pg MCHC 32.9 (31.7-36.0) g/dL RDW 15.3 H (11.2-14.1) % Plt Count 180 (150-350) K/uL Neut % (Auto) 95.0 H (45.0-80.0) % Lymph % (Auto) 2.2 L (10.0-50.0) % [place] % (Auto) 2.6 (2.0-14.0) % Eos % (Auto) 0.0 (0.0-5.0) % Baso % (Auto) 0.2 (0.0-2.0) % Neut # (Auto) 12.29 H (1.40-7.00) K/uL Lymph # (Auto) 0.29 L (0.50-3.50) K/uL [place] # (Auto) 0.33 (0.00-1.00) K/uL Eos # (Auto) 0.00 (0.00-0.50) K/uL Baso # (Auto) 0.02 (0.00-0.20) K/uL Sodium 141 (136-145) mmol/L Potassium 3.3 L (3.5-5.1) mmol/L Chloride 100 (98-107) mmol/L Carbon Dioxide 32.3 H (21.0-32.0) mmol/L BUN 32 H (7-18) mg/dL Creatinine 0.80 (0.51-1.17) mg/dL Est Cr Clr Drug Dosing 103.00 mL/min Estimated GFR (MDRD) > 60 mL/min Glucose 153 H (74-106) mg/dL Calcium 8.7 (8.5-10.1) mg/dL Total Bilirubin 0.3 (0.2-1.0) mg/dL AST 25 (15-37) U/L ALT 21 (12-78) U/L Alkaline Phosphatase 98 (46-116) IU/L C-Reactive Protein 5.1 H (<=0.9) mg/dL NT-Pro-B Natriuret Pep 1010 H (0-125) pg/mL Total Protein 7.4 (6.4-8.2) g/dL Albumin 2.8 L (3.4-5.0) g/dL [place] Results Last 24 Hours: Microbiology 08/13/17 15:10 Aerobic Blood Culture - Preliminary Blood - Venous - Lab Draw NO GROWTH AFTER 2 DAYS Anaerobic Blood Culture - Preliminary NO GROWTH AFTER 2 DAYS 08/13/17 15:00 Aerobic Blood Culture - Preliminary Blood - Venous NO GROWTH AFTER 2 DAYS Anaerobic Blood Culture - Preliminary NO GROWTH AFTER 2 DAYS Med Orders - Current: Current Medications Albuterol/Ipratropium (Duoneb 3.0-0.5 Mg/3 Ml) 3 ml NEB Q4HRRT PRN PRN Reason: Dyspnea Albuterol/Ipratropium (Duoneb 3.0-0.5 Mg/3 Ml) 3 ml NEB QID JENNIFER Last Admin: 08/15/17 19:31 Dose: 3 ml Aspirin (Aspirin) 81 mg PO QAM [facility] Last Admin: 08/15/17 07:18 Dose: 81 mg Ceftazidime (Fortaz) 1 gm IVPUSH Q8HR [facility] Last Admin: 08/15/17 15:46 Dose: 1 gm Febuxostat (Uloric) 20 mg PO BID [facility] Last Admin: 08/15/17 17:25 Dose: 20 mg Folic Acid (Folic Acid) 1 mg PO QAM [facility] Last Admin: 08/15/17 07:19 Dose: 1 mg Furosemide (Lasix) 20 mg IVPUSH DAILY [facility] Last Admin: 08/15/17 07:20 Dose: 20 mg Azithromycin 500 mg/ Sodium (Chloride) 250 mls @ 250 mls/hr IV Q24H [facility] Last Admin: 08/15/17 15:50 Dose: 250 mls/hr Lorazepam (Ativan) 0.5 mg IVPUSH Q6H PRN PRN Reason: aggitation, CIWAA scale, BP Last Admin: 08/13/17 21:37 Dose: 0.5 mg Losartan Potassium (Cozaar) 50 mg PO DAILY [facility] Last Admin: 08/15/17 07:18 Dose: 50 mg Methylprednisolone Sodium Succinate (Solu-Medrol) 40 mg IVPUSH Q8H [facility] Last Admin: 08/15/17 15:42 Dose: 40 mg Metoprolol Succinate (Toprol Xl) 50 mg PO QPM [facility] Last Admin: 08/15/17 17:24 Dose: 50 mg Potassium Chloride (Klor-Con M20) 20 meq PO BID [facility] Last Admin: 08/15/17 17:23 Dose: 20 meq Sodium Chloride (Saline Flush) 10 ml FLUSH ASDIRECTED PRN PRN Reason: Keep Vein Open Last Admin: 08/15/17 15:42 Dose: 10 ml Sodium Chloride (Saline Flush) 10 ml FLUSH Q12HR [facility] Last Admin: 08/15/17 19:31 Dose: 10 ml Discontinued Medications Febuxostat (Uloric) 40 mg PO BID [facility] Last Admin: 08/13/17 17:13 Dose: 40 mg Furosemide (Lasix) 20 mg IVPUSH NOW ONE Stop: 08/13/17 15:09 Last Admin: 08/13/17 16:01 Dose: 20 mg Sodium Chloride (Normal Saline) 500 mls @ 100 mls/hr IV ASDIRECTED JENNIFER Sodium Chloride (Saline Flush) 10 ml FLUSH ASDIRECTED PRN PRN Reason: Keep Vein Open Last Admin: 08/14/17 07:53 Dose: 10 ml - Exam Quality Assessment: Supplemental Oxygen General: Alert, Cooperative, No Acute Distress HEENT: Mucous Membr. Moist/[place] Neck: Trachea Midline, No JVD Lungs: Normal Respiratory Effort, Decreased Breath Sounds, Crackles (LLL), Rhonchi (LLL), Rub (LLL) Cardiovascular: Regular Rate, Regular Rhythm GI/Abdominal Exam: Normal Bowel Sounds, Soft, Non-Tender, No Organomegaly, No Distention, No Abnormal Bruit, No Mass, Pelvis Stable (Male) Exam: No Hernia, Normal Inspection, Normal Prostate, Circumcised Back Exam: Normal Inspection, Full Range of Motion Extremities: Normal Inspection, Normal Range of Motion, Non-Tender, No Pedal Edema, Normal Capillary Refill Skin: Warm, Dry, Intact Wound/Incisions: Healing Well Neurological: No New Focal Deficit Psy/Mental Status: Alert, Normal Affect, Normal Mood - Problem List & Annotations (1) Pneumonia SNOMED Code(s): 406879155 Code(s): J18.9 - PNEUMONIA, UNSPECIFIED ORGANISM Status: Acute Priority: High Current Visit: Yes Qualifiers: Pneumonia type: due to unspecified organism Laterality: left Lung location: lower lobe of lung Qualified Code(s): J18.1 - Lobar pneumonia, unspecified organism (2) Back pain at L4-L5 level SNOMED Code(s): 841022181 Code(s): M54.5 - LOW BACK PAIN Status: Acute Priority: Medium Current Visit: No Onset Date: 08/15/15 Annotation/Comment:: Patient has history of chronic back issues. May be acute exacerbation of baseline back problems or possibly may be related to spasm secondary to hypokalemia. (3) Generalized muscle ache SNOMED Code(s): 38646431 Code(s): M79.1 - MYALGIA Status: Acute Current Visit: No (4) Gout SNOMED Code(s): 30697517 Code(s): M10.9 - GOUT, UNSPECIFIED Status: Acute Priority: Low Current Visit: No Onset Date: 08/14/15 Qualifiers: Gout site: elbow Gout etiology: unspecified cause Chronicity: acute Laterality: right Qualified Code(s): M10.9 - Gout, unspecified (5) Weakness generalized SNOMED Code(s): 53051290 Code(s): R53.1 - WEAKNESS Status: Acute Current Visit: No (6) COPD (chronic obstructive pulmonary disease) SNOMED Code(s): 51173039 Code(s): J44.9 - CHRONIC OBSTRUCTIVE PULMONARY DISEASE, UNSPECIFIED Status : Chronic Priority: High Current Visit: No Qualifiers: COPD type: emphysema Emphysema type: panlobular Qualified Code(s): J43.1 - Panlobular emphysema (7) Complete left bundle branch block (LBBB) SNOMED Code(s): 7938605 Code(s): I44.7 - LEFT BUNDLE-BRANCH BLOCK, UNSPECIFIED Status: Chronic Priority: Low Current Visit: No Onset Date: 01/25/15 Annotation/Comment:: No recent chest pain or anginal complaints (8) Hyperglycemia SNOMED Code(s): 10164599 Code(s): R73.9 - HYPERGLYCEMIA, UNSPECIFIED Status: Chronic Priority: Low Current Visit: No Annotation/Comment:: Not previously treated. Consider glycosylated hemoglobin, etc. by accepting physician (9) Hyperlipidemia SNOMED Code(s): 97389422 Code(s): E78.5 - HYPERLIPIDEMIA, UNSPECIFIED Status: Chronic Priority: Medium Current Visit: No Annotation/Comment:: History of fatty liver, including secondary LFTs elevation as above. Distant lipid profile showed only mild hyperlipidemia, however patient would likely benefit from a statin secondary to his current cardiac symptoms. (10) Hypertension SNOMED Code(s): 29756710 Code(s): I10 - ESSENTIAL (PRIMARY) HYPERTENSION Status: Chronic Priority : Low Current Visit: No Qualifiers: Hypertension type: essential hypertension Qualified Code(s): I10 - Essential (primary) hypertension Annotation/Comment:: Blood pressure stable in the emergency room and otherwise stable by history (11) Hyperuricemia SNOMED Code(s): 09353539 Code(s): E79.0 - HYPERURICEMIA W/O SIGNS OF INFLAM ARTHRIT AND TOPHACEOUS DIS Status: Chronic Priority: Medium Current Visit: No Annotation/ Comment:: Uric acid level elevated today with no previous history of gout attacks, however previously known nontreated hyperuricemia (12) Osteoarthritis SNOMED Code(s): 111510752 Code(s): M19.90 - UNSPECIFIED OSTEOARTHRITIS, UNSPECIFIED SITE Status: Chronic Priority: Medium Current Visit: No Qualifiers: Osteoarthritis location: multiple joints Osteoarthritis type: primary Qualified Code(s): M15.0 - Primary generalized (osteo)arthritis Annotation/Comment:: Otherwise stable by history with no recent history of gout attacks (13) Peptic reflux disease SNOMED Code(s): 04813985 Code(s): K21.9 - GASTRO-ESOPHAGEAL REFLUX DISEASE WITHOUT ESOPHAGITIS Status: Chronic Priority: Low Current Visit: No Annotation/Comment:: Stable with current OTC Zantac therapy by history. Distant H. pylori was negative (14) Rheumatoid arthritis SNOMED Code(s): 76478425 Code(s): M06.9 - RHEUMATOID ARTHRITIS, UNSPECIFIED Status: Chronic Priority: Medium Current Visit: No Qualifiers: Rheumatoid arthritis location: multiple sites Rheumatoid factor presence: unspecified presence Qualified Code(s): M06.9 - Rheumatoid arthritis, unspecified Annotation/Comment:: Stable by history - Problem List Review Problem List Initiated/Reviewed/Updated: Yes - My Orders Last 24 Hours: My Active Orders 08/15/17 08:00 Sodium Chloride 0.9% [Saline Flush] 10 ml FLUSH Q12HR 08/16/17 05:11 BLOOD GAS VENOUS [BG] Routine - Plan Plan:: 08-13-17 Haley Renee PA-C Admitting to Dr. Perez for IP treatment of pneumonia and acute COPD exacerbation. O2 sat was only 87% on RA in the clinic, oxygen applied and sat did come up to 92%. Troponin came back at 0.066, mildly positive - possibly secondary to work of breathing of current illness. EKG did find a LBBB. Repeating troponin and EKG at 1800 today. Did discuss possible transfer to a tertiary facility in [place] with patient and his , they do not want to unless they absolutely have to. If repeat troponins/EKG's would indicate cardiac etiology will need to transfer. Initiating treatment of pneumonia with IV Fortaz and Zithromax, and treating pneumonia and COPD with IV Solu-Medrol. Patient also has indications of possible CHF, and IV Lasix is started and an Echocardiogram is ordered for tomorrow. 08/14/17 Ana Tian MD Feels better today but not back to normal. Continue medical therapy. 08/15/17 Ana Tian MD Continues improvement but still with desaturation with ambulation.
[2017-08-16 07:32] LABS: O2 DELIVERY DEVICE NASAL CANNULA
[2017-08-16] MEDS: Losartan 50 MG Tab PO SCH (07:36)
[2017-08-16] MEDS: Aspirin 81 MG Tab.Chew PO SCH (07:36)
[2017-08-16] MEDS: Folic Acid 1 MG Tab PO SCH (07:37)
[2017-08-16] MEDS: Potassium Chloride 20 MEQ Tab.ER PO SCH (07:37)
[2017-08-16] MEDS: cefTAZidime 1 GM Vial IVPUSH SCH ×2 (07:37→16:01)
[2017-08-16] MEDS: Sodium Chloride 0.9% 10 ML Syringe FLUSH SCH (07:38)
[2017-08-16] MEDS: Febuxostat 40 MG Tab PO SCH (07:45)
[2017-08-16] MEDS: Albuterol/Ipratropium 3.0-0.5 MG/3 ML Neb Soln NEB SCH ×3 (07:46→15:50)
[2017-08-16 07:52] LABS: CHLORIDE,CL 102 mmol/L (98-107); SODIUM,NA 141 mmol/L (136-145)
[2017-08-16] MEDS: Sodium Chloride 0.9% 10 ML Syringe FLUSH PRN ×2 (07:52→08:03)
[2017-08-16] MEDS: methylPREDNISolone Sodium Succinate 40 MG/1 ML SDV IVPUSH SCH ×2 (07:54→16:01)
[2017-08-16] MEDS: Furosemide 20 MG/2 ML VIAL IVPUSH SCH (08:00)
[2017-08-16 08:20] LABS: BASE EXCESS VENOUS 9 mmol/L ((-2)-3); BICARBONATE,VENOUS 34 mmol/L (23-28); O2 SATURATION VENOUS 96 %; PCO2 VENOUS 55 mmHG (41-51); PO2 VENOUS 84 mmHG
--- NOTE | 2017-08-16 15:12 | PCM.PN ---
- General Info Date of Service: 08/16/17 Admission Dx/Problem (Free Text): Admission Diagnosis/Problem Admission Diagnosis/Problem Pneumonia Functional Status: Reports: Pain Controlled, Tolerating Diet, Ambulating - Review of Systems General: Reports: No Symptoms HEENT: Reports: No Symptoms Pulmonary: Reports: No Symptoms Cardiovascular: Reports: No Symptoms Gastrointestinal: Reports: No Symptoms Genitourinary: Reports: No Symptoms Musculoskeletal: Reports: No Symptoms Skin: Reports: No Symptoms Neurological: Reports: No Symptoms Psychiatric: Reports: No Symptoms - Patient Data Vitals - Most Recent: Last Vital Signs Temp 97.2 F 08/16/17 12:00 Pulse 75 08/16/17 12:00 Resp 16 08/16/17 12:00 BP 131/72 08/16/17 12:00 Pulse Ox 92 L 08/16/17 12:00 Weight - Most Recent: 172 lb 4.8 oz I&O - Last 24 Hours: Intake & Output 08/16/17 08/16/17 08/16/17 06:59 14:59 22:59 Intake Total 490 Output Total 250 Balance -250 490 Lab Results Last 24 Hours: Laboratory Results - last 24 hr 08/16/17 08/16/17 08/16/17 Range/Units 07:10 07:10 07:10 WBC 9.2 (4.0-10.2) K/uL RBC 3.83 L (4.33-5.41) M/uL Hgb 12.3 L (13.1-16.8) g/dL Hct 37.8 L (39.0-49.0) % MCV 98.7 H (84.0-98.0) fL MCH 32.1 (28.2-33.3) pg MCHC 32.5 (31.7-36.0) g/dL RDW 15.3 H (11.2-14.1) % Plt Count 152 (150-350) K/uL Neut % (Auto) 94.4 H (45.0-80.0) % Lymph % (Auto) 2.7 L (10.0-50.0) % [place] % (Auto) 2.8 (2.0-14.0) % Eos % (Auto) 0.0 (0.0-5.0) % Baso % (Auto) 0.1 (0.0-2.0) % Neut # (Auto) 8.68 H (1.40-7.00) K/uL Lymph # (Auto) 0.25 L (0.50-3.50) K/uL [place] # (Auto) 0.26 (0.00-1.00) K/uL Eos # (Auto) 0.00 (0.00-0.50) K/uL Baso # (Auto) 0.01 (0.00-0.20) K/uL VBG pH 7.40 (7.31-7.41) VBG pCO2 55 H (41-51) mmHG VBG pO2 84 mmHG VBG HCO3 34 H (23-28) mmol/L VBG Total CO2 35 mmol/L VBG O2 Saturation 96 % VBG Base Excess 9 H ((-2)-3) mmol/L O2 Delivery Device Nasal cannula Sodium 141 (136-145) mmol/L Potassium 3.8 (3.5-5.1) mmol/L Chloride 102 (98-107) mmol/L Carbon Dioxide 33.5 H (21.0-32.0) mmol/L BUN 38 H (7-18) mg/dL Creatinine 0.75 (0.51-1.17) mg/dL Est Cr Clr Drug Dosing 109.99 mL/min Estimated GFR (MDRD) > 60 mL/min Glucose 151 H (74-106) mg/dL Calcium 8.5 (8.5-10.1) mg/dL Total Bilirubin 0.3 (0.2-1.0) mg/dL AST 28 (15-37) U/L ALT 25 (12-78) U/L Alkaline Phosphatase 83 (46-116) IU/L C-Reactive Protein 1.6 H (<=0.9) mg/dL NT-Pro-B Natriuret Pep 863 H (0-125) pg/mL Total Protein 6.7 (6.4-8.2) g/dL Albumin 2.6 L (3.4-5.0) g/dL [place] Results Last 24 Hours: Microbiology 08/13/17 08:00 Mycoplasma Serology - Final Blood 08/13/17 15:10 Aerobic Blood Culture - Preliminary Blood - Venous - Lab Draw NO GROWTH AFTER 2 DAYS Anaerobic Blood Culture - Preliminary NO GROWTH AFTER 2 DAYS 08/13/17 15:00 Aerobic Blood Culture - Preliminary Blood - Venous NO GROWTH AFTER 2 DAYS Anaerobic Blood Culture - Preliminary NO GROWTH AFTER 2 DAYS Med Orders - Current: Current Medications Albuterol/Ipratropium (Duoneb 3.0-0.5 Mg/3 Ml) 3 ml NEB Q4HRRT PRN PRN Reason: Dyspnea Albuterol/Ipratropium (Duoneb 3.0-0.5 Mg/3 Ml) 3 ml NEB QID [facility] Last Admin: 08/16/17 11:58 Dose: 3 ml Aspirin (Aspirin) 81 mg PO QAM [facility] Last Admin: 08/16/17 07:36 Dose: 81 mg Azithromycin (Zithromax) 500 mg PO ONETIME ONE Stop: 08/16/17 16:01 Ceftazidime (Fortaz) 1 gm IVPUSH Q8HR [facility] Last Admin: 08/16/17 07:37 Dose: 1 gm Febuxostat (Uloric) 20 mg PO BID [facility] Last Admin: 08/16/17 07:45 Dose: 20 mg Folic Acid (Folic Acid) 1 mg PO QAM [facility] Last Admin: 08/16/17 07:37 Dose: 1 mg Furosemide (Lasix) 20 mg IVPUSH DAILY [facility] Last Admin: 08/16/17 08:00 Dose: 20 mg Lorazepam (Ativan) 0.5 mg IVPUSH Q6H PRN PRN Reason: aggitation, CIWAA scale, BP Last Admin: 08/13/17 21:37 Dose: 0.5 mg Losartan Potassium (Cozaar) 50 mg PO DAILY [facility] Last Admin: 08/16/17 07:36 Dose: 50 mg Methylprednisolone Sodium Succinate (Solu-Medrol) 40 mg IVPUSH Q8H [facility] Last Admin: 08/16/17 07:54 Dose: 40 mg Metoprolol Succinate (Toprol Xl) 50 mg PO QPM [facility] Last Admin: 08/15/17 17:24 Dose: 50 mg Potassium Chloride (Klor-Con M20) 20 meq PO BID [facility] Last Admin: 08/16/17 07:37 Dose: 20 meq Sodium Chloride (Saline Flush) 10 ml FLUSH ASDIRECTED PRN PRN Reason: Keep Vein Open Last Admin: 08/16/17 08:03 Dose: 10 ml Sodium Chloride (Saline Flush) 10 ml FLUSH Q12HR [facility] Last Admin: 08/16/17 07:38 Dose: 10 ml Discontinued Medications Febuxostat (Uloric) 40 mg PO BID [facility] Last Admin: 08/13/17 17:13 Dose: 40 mg Furosemide (Lasix) 20 mg IVPUSH NOW ONE Stop: 08/13/17 15:09 Last Admin: 08/13/17 16:01 Dose: 20 mg Sodium Chloride (Normal Saline) 500 mls @ 100 mls/hr IV ASDIRECTED JENNIFER Azithromycin 500 mg/ Sodium (Chloride) 250 mls @ 250 mls/hr IV Q24H [facility] Last Admin: 08/15/17 15:50 Dose: 250 mls/hr Sodium Chloride (Saline Flush) 10 ml FLUSH ASDIRECTED PRN PRN Reason: Keep Vein Open Last Admin: 08/14/17 07:53 Dose: 10 ml - Exam General: Alert, Cooperative, No Acute Distress HEENT: Mucous Membr. Moist/[place], Other (poor dentition) Neck: Trachea Midline, No JVD Lungs: Normal Respiratory Effort, Decreased Breath Sounds, Crackles (LLL), Rhonchi (LLL) Cardiovascular: Regular Rate, Regular Rhythm GI/Abdominal Exam: Soft, Non-Tender, No Distention (Male) Exam: Deferred Back Exam: Normal Inspection Extremities: Normal Inspection, Non-Tender, No Pedal Edema Skin: Warm, Dry, Intact Neurological: No New Focal Deficit Psy/Mental Status: Alert, Normal Affect, Normal Mood - Problem List & Annotations (1) Pneumonia SNOMED Code(s): 876804792 Code(s): J18.9 - PNEUMONIA, UNSPECIFIED ORGANISM Status: Acute Priority: High Current Visit: Yes Qualifiers: Pneumonia type: due to unspecified organism Laterality: left Lung location: lower lobe of lung Qualified Code(s): J18.1 - Lobar pneumonia, unspecified organism (2) Back pain at L4-L5 level SNOMED Code(s): 825753429 Code(s): M54.5 - LOW BACK PAIN Status: Acute Priority: Medium Current Visit: No Onset Date: 08/15/15 Annotation/Comment:: Patient has history of chronic back issues. May be acute exacerbation of baseline back problems or possibly may be related to spasm secondary to hypokalemia. (3) Generalized muscle ache SNOMED Code(s): 83744009 Code(s): M79.1 - MYALGIA Status: Acute Current Visit: No (4) Gout SNOMED Code(s): 85120036 Code(s): M10.9 - GOUT, UNSPECIFIED Status: Acute Priority: Low Current Visit: No Onset Date: 08/14/15 Qualifiers: Gout site: elbow Gout etiology: unspecified cause Chronicity: acute Laterality: right Qualified Code(s): M10.9 - Gout, unspecified (5) Weakness generalized SNOMED Code(s): 55419997 Code(s): R53.1 - WEAKNESS Status: Acute Current Visit: No (6) COPD (chronic obstructive pulmonary disease) SNOMED Code(s): 09096867 Code(s): J44.9 - CHRONIC OBSTRUCTIVE PULMONARY DISEASE, UNSPECIFIED Status : Chronic Priority: High Current Visit: No Qualifiers: COPD type: emphysema Emphysema type: panlobular Qualified Code(s): J43.1 - Panlobular emphysema (7) Complete left bundle branch block (LBBB) SNOMED Code(s): 8227935 Code(s): I44.7 - LEFT BUNDLE-BRANCH BLOCK, UNSPECIFIED Status: Chronic Priority: Low Current Visit: No Onset Date: 01/25/15 Annotation/Comment:: No recent chest pain or anginal complaints (8) Hyperglycemia SNOMED Code(s): 12923344 Code(s): R73.9 - HYPERGLYCEMIA, UNSPECIFIED Status: Chronic Priority: Low Current Visit: No Annotation/Comment:: Not previously treated. Consider glycosylated hemoglobin, etc. by accepting physician (9) Hyperlipidemia SNOMED Code(s): 12314406 Code(s): E78.5 - HYPERLIPIDEMIA, UNSPECIFIED Status: Chronic Priority: Medium Current Visit: No Annotation/Comment:: History of fatty liver, including secondary LFTs elevation as above. Distant lipid profile showed only mild hyperlipidemia, however patient would likely benefit from a statin secondary to his current cardiac symptoms. (10) Hypertension SNOMED Code(s): 87328757 Code(s): I10 - ESSENTIAL (PRIMARY) HYPERTENSION Status: Chronic Priority : Low Current Visit: No Qualifiers: Hypertension type: essential hypertension Qualified Code(s): I10 - Essential (primary) hypertension Annotation/Comment:: Blood pressure stable in the emergency room and otherwise stable by history (11) Hyperuricemia SNOMED Code(s): 17818731 Code(s): E79.0 - HYPERURICEMIA W/O SIGNS OF INFLAM ARTHRIT AND TOPHACEOUS DIS Status: Chronic Priority: Medium Current Visit: No Annotation/ Comment:: Uric acid level elevated today with no previous history of gout attacks, however previously known nontreated hyperuricemia (12) Osteoarthritis SNOMED Code(s): 845076112 Code(s): M19.90 - UNSPECIFIED OSTEOARTHRITIS, UNSPECIFIED SITE Status: Chronic Priority: Medium Current Visit: No Qualifiers: Osteoarthritis location: multiple joints Osteoarthritis type: primary Qualified Code(s): M15.0 - Primary generalized (osteo)arthritis Annotation/Comment:: Otherwise stable by history with no recent history of gout attacks (13) Peptic reflux disease SNOMED Code(s): 34829148 Code(s): K21.9 - GASTRO-ESOPHAGEAL REFLUX DISEASE WITHOUT ESOPHAGITIS Status: Chronic Priority: Low Current Visit: No Annotation/Comment:: Stable with current OTC Zantac therapy by history. Distant H. pylori was negative (14) Rheumatoid arthritis SNOMED Code(s): 94942882 Code(s): M06.9 - RHEUMATOID ARTHRITIS, UNSPECIFIED Status: Chronic Priority: Medium Current Visit: No Qualifiers: Rheumatoid arthritis location: multiple sites Rheumatoid factor presence: unspecified presence Qualified Code(s): M06.9 - Rheumatoid arthritis, unspecified Annotation/Comment:: Stable by history - Problem List Review Problem List Initiated/Reviewed/Updated: Yes - My Orders Last 24 Hours: My Active Orders 08/16/17 15:06 Cardiac Monitoring Discontinue [RC] Click to Edit 08/16/17 16:00 Azithromycin [Zithromax] 500 mg PO ONETIME ONE 08/16/17 17:00 Discontinue Saline Lock [Peripheral IV Discontinue] [OM.PC] Routine - Plan Plan:: 08-13-17 Haley Renee PA-C Admitting to Dr. Perez for IP treatment of pneumonia and acute COPD exacerbation. O2 sat was only 87% on RA in the clinic, oxygen applied and sat did come up to 92%. Troponin came back at 0.066, mildly positive - possibly secondary to work of breathing of current illness. EKG did find a LBBB. Repeating troponin and EKG at 1800 today. Did discuss possible transfer to a tertiary facility in [place] with patient and his , they do not want to unless they absolutely have to. If repeat troponins/EKG's would indicate cardiac etiology will need to transfer. Initiating treatment of pneumonia with IV Fortaz and Zithromax, and treating pneumonia and COPD with IV Solu-Medrol. Patient also has indications of possible CHF, and IV Lasix is started and an Echocardiogram is ordered for tomorrow. 08/14/17 Ana Tian MD Feels better today but not back to normal. Continue medical therapy. 08/15/17 Ana Tian MD Continues improvement but still with desaturation with ambulation. 08/16/17 Ana Tian MD Feels so much better. O2 sats improved. Stable for discharge to home.
--- NOTE | 2017-08-16 15:14 | PCM.DCSUM1 ---
Discharge Summary - Discharge Data Discharge Date: 08/16/17 Discharge Disposition: Home, Self-Care 01 Condition: Good - Discharge Diagnosis/Problem(s) (1) Pneumonia SNOMED Code(s): 394903460 ICD Code: J18.9 - PNEUMONIA, UNSPECIFIED ORGANISM Status: Acute Priority : High Current Visit: Yes Qualifiers: Pneumonia type: due to unspecified organism Laterality: left Lung location: lower lobe of lung Qualified Code(s): J18.1 - Lobar pneumonia, unspecified organism (2) Back pain at L4-L5 level SNOMED Code(s): 714334218 ICD Code: M54.5 - LOW BACK PAIN Status: Acute Priority: Medium Current Visit: No Onset Date: 08/15/15 Problem Details: Patient has history of chronic back issues. May be acute exacerbation of baseline back problems or possibly may be related to spasm secondary to hypokalemia. (3) Generalized muscle ache SNOMED Code(s): 87572013 ICD Code: M79.1 - MYALGIA Status: Acute Current Visit: No (4) Gout SNOMED Code(s): 18205074 ICD Code: M10.9 - GOUT, UNSPECIFIED Status: Acute Priority: Low Current Visit: No Onset Date: 08/14/15 Qualifiers: Gout site: elbow Gout etiology: unspecified cause Chronicity: acute Laterality: right Qualified Code(s): M10.9 - Gout, unspecified (5) Weakness generalized SNOMED Code(s): 20067506 ICD Code: R53.1 - WEAKNESS Status: Acute Current Visit: No (6) COPD (chronic obstructive pulmonary disease) SNOMED Code(s): 61955964 ICD Code: J44.9 - CHRONIC OBSTRUCTIVE PULMONARY DISEASE, UNSPECIFIED Status : Chronic Priority: High Current Visit: No Qualifiers: COPD type: emphysema Emphysema type: panlobular Qualified Code(s): J43.1 - Panlobular emphysema (7) Complete left bundle branch block (LBBB) SNOMED Code(s): 6505369 ICD Code: I44.7 - LEFT BUNDLE-BRANCH BLOCK, UNSPECIFIED Status: Chronic Priority: Low Current Visit: No Onset Date: 01/25/15 Problem Details: No recent chest pain or anginal complaints (8) Hyperglycemia SNOMED Code(s): 29205838 ICD Code: R73.9 - HYPERGLYCEMIA, UNSPECIFIED Status: Chronic Priority: Low Current Visit: No Problem Details: Not previously treated. Consider glycosylated hemoglobin, etc. by accepting physician (9) Hyperlipidemia SNOMED Code(s): 56589117 ICD Code: E78.5 - HYPERLIPIDEMIA, UNSPECIFIED Status: Chronic Priority: Medium Current Visit: No Problem Details: History of fatty liver, including secondary LFTs elevation as above. Distant lipid profile showed only mild hyperlipidemia, however patient would likely benefit from a statin secondary to his current cardiac symptoms. (10) Hypertension SNOMED Code(s): 76468266 ICD Code: I10 - ESSENTIAL (PRIMARY) HYPERTENSION Status: Chronic Priority : Low Current Visit: No Problem Details: Blood pressure stable in the emergency room and otherwise stable by history Qualifiers: Hypertension type: essential hypertension Qualified Code(s): I10 - Essential (primary) hypertension (11) Hyperuricemia SNOMED Code(s): 23330380 ICD Code: E79.0 - HYPERURICEMIA W/O SIGNS OF INFLAM ARTHRIT AND TOPHACEOUS DIS Status: Chronic Priority: Medium Current Visit: No Problem Details: Uric acid level elevated today with no previous history of gout attacks, however previously known nontreated hyperuricemia (12) Osteoarthritis SNOMED Code(s): 947882647 ICD Code: M19.90 - UNSPECIFIED OSTEOARTHRITIS, UNSPECIFIED SITE Status: Chronic Priority: Medium Current Visit: No Problem Details: Otherwise stable by history with no recent history of gout attacks Qualifiers: Osteoarthritis location: multiple joints Osteoarthritis type: primary Qualified Code(s): M15.0 - Primary generalized (osteo)arthritis (13) Peptic reflux disease SNOMED Code(s): 79439345 ICD Code: K21.9 - GASTRO-ESOPHAGEAL REFLUX DISEASE WITHOUT ESOPHAGITIS Status: Chronic Priority: Low Current Visit: No Problem Details: Stable with current OTC Zantac therapy by history. Distant H. pylori was negative (14) Rheumatoid arthritis SNOMED Code(s): 14580766 ICD Code: M06.9 - RHEUMATOID ARTHRITIS, UNSPECIFIED Status: Chronic Priority: Medium Current Visit: No Problem Details: Stable by history Qualifiers: Rheumatoid arthritis location: multiple sites Rheumatoid factor presence: unspecified presence Qualified Code(s): M06.9 - Rheumatoid arthritis, unspecified - Patient Instructions Diet: Usual Diet as Tolerated Activity: As Tolerated, Rest and Relax Today Driving: May Drive Today Showering/Bathing: May Shower Other/Special Instructions: Follow up at [facility] in 1-2 weeks with Neris Renee PA-C and you will need a follow up chest x-ray within 2-6 weeks. - Discharge Plan Home Medications: Home Meds Aspirin 81 mg PO QAM 01/25/15 [History] Metoprolol Succinate [Toprol XL] 50 mg PO QPM 01/25/15 [History] Losartan [Cozaar] 50 mg PO DAILY 08/14/15 [History] Febuxostat [Uloric] 20 mg PO BID 11/13/16 [History] Folic Acid 1 mg PO QAM 11/13/16 [History] Leflunomide 20 mg PO QAM 11/13/16 [History] predniSONE [Prednisone] 10 mg PO QAM 11/13/16 [History] Budesonide/Formoterol Fumarate [Symbicort 80-4.5 Mcg Inhaler] 2 puff INH BID [History] Patient Handouts: Azithromycin for infusion, Chronic Obstructive Pulmonary Disease, [id number], Ceftazidime injection, Cardiac-Specific Troponin I and T Test, Heart Failure, [id number], Community-Acquired Pneumonia, Adult, Methylprednisolone Suspension for Injection - Discharge Summary/Plan Comment DC Time >30 min.: No - Patient Data Vitals - Most Recent: Last Vital Signs Temp 97.2 F 08/16/17 12:00 Pulse 75 08/16/17 12:00 Resp 16 08/16/17 12:00 BP 131/72 08/16/17 12:00 Pulse Ox 92 L 08/16/17 12:00 Weight - Most Recent: 172 lb 4.8 oz I&O - Last 24 hours: Intake & Output 08/16/17 08/16/17 08/16/17 06:59 14:59 22:59 Intake Total 490 Output Total 250 Balance -250 490 Lab Results - Last 24 hrs: Laboratory Results - last 24 hr 08/16/17 08/16/17 08/16/17 Range/Units 07:10 07:10 07:10 WBC 9.2 (4.0-10.2) K/uL RBC 3.83 L (4.33-5.41) M/uL Hgb 12.3 L (13.1-16.8) g/dL Hct 37.8 L (39.0-49.0) % MCV 98.7 H (84.0-98.0) fL MCH 32.1 (28.2-33.3) pg MCHC 32.5 (31.7-36.0) g/dL RDW 15.3 H (11.2-14.1) % Plt Count 152 (150-350) K/uL Neut % (Auto) 94.4 H (45.0-80.0) % Lymph % (Auto) 2.7 L (10.0-50.0) % Sawyer % (Auto) 2.8 (2.0-14.0) % Eos % (Auto) 0.0 (0.0-5.0) % Baso % (Auto) 0.1 (0.0-2.0) % Neut # (Auto) 8.68 H (1.40-7.00) K/uL Lymph # (Auto) 0.25 L (0.50-3.50) K/uL Sawyer # (Auto) 0.26 (0.00-1.00) K/uL Eos # (Auto) 0.00 (0.00-0.50) K/uL Baso # (Auto) 0.01 (0.00-0.20) K/uL VBG pH 7.40 (7.31-7.41) VBG pCO2 55 H (41-51) mmHG VBG pO2 84 mmHG VBG HCO3 34 H (23-28) mmol/L VBG Total CO2 35 mmol/L VBG O2 Saturation 96 % VBG Base Excess 9 H ((-2)-3) mmol/L O2 Delivery Device Nasal cannula Sodium 141 (136-145) mmol/L Potassium 3.8 (3.5-5.1) mmol/L Chloride 102 (98-107) mmol/L Carbon Dioxide 33.5 H (21.0-32.0) mmol/L BUN 38 H (7-18) mg/dL Creatinine 0.75 (0.51-1.17) mg/dL Est Cr Clr Drug Dosing 109.99 mL/min Estimated GFR (MDRD) > 60 mL/min Glucose 151 H (74-106) mg/dL Calcium 8.5 (8.5-10.1) mg/dL Total Bilirubin 0.3 (0.2-1.0) mg/dL AST 28 (15-37) U/L ALT 25 (12-78) U/L Alkaline Phosphatase 83 (46-116) IU/L C-Reactive Protein 1.6 H (<=0.9) mg/dL NT-Pro-B Natriuret Pep 863 H (0-125) pg/mL Total Protein 6.7 (6.4-8.2) g/dL Albumin 2.6 L (3.4-5.0) g/dL EFFIE Results - Last 24 hrs: Microbiology 08/13/17 15:10 Aerobic Blood Culture - Preliminary Blood - Venous - Lab Draw NO GROWTH AFTER 3 DAYS Anaerobic Blood Culture - Preliminary NO GROWTH AFTER 3 DAYS 08/13/17 15:00 Aerobic Blood Culture - Preliminary Blood - Venous NO GROWTH AFTER 3 DAYS Anaerobic Blood Culture - Preliminary NO GROWTH AFTER 3 DAYS 08/13/17 08:00 Mycoplasma Serology - Final Blood Med Orders - Current: Current Medications Albuterol/Ipratropium (Duoneb 3.0-0.5 Mg/3 Ml) 3 ml NEB Q4HRRT PRN PRN Reason: Dyspnea Albuterol/Ipratropium (Duoneb 3.0-0.5 Mg/3 Ml) 3 ml NEB QID [facility] Last Admin: 08/16/17 11:58 Dose: 3 ml Aspirin (Aspirin) 81 mg PO QAM [facility] Last Admin: 08/16/17 07:36 Dose: 81 mg Azithromycin (Zithromax) 500 mg PO ONETIME ONE Stop: 08/16/17 16:01 Ceftazidime (Fortaz) 1 gm IVPUSH Q8HR [facility] Last Admin: 08/16/17 07:37 Dose: 1 gm Febuxostat (Uloric) 20 mg PO BID [facility] Last Admin: 08/16/17 07:45 Dose: 20 mg Folic Acid (Folic Acid) 1 mg PO QAM [facility] Last Admin: 08/16/17 07:37 Dose: 1 mg Furosemide (Lasix) 20 mg IVPUSH DAILY [facility] Last Admin: 08/16/17 08:00 Dose: 20 mg Lorazepam (Ativan) 0.5 mg IVPUSH Q6H PRN PRN Reason: aggitation, CIWAA scale, BP Last Admin: 08/13/17 21:37 Dose: 0.5 mg Losartan Potassium (Cozaar) 50 mg PO DAILY [facility] Last Admin: 08/16/17 07:36 Dose: 50 mg Methylprednisolone Sodium Succinate (Solu-Medrol) 40 mg IVPUSH Q8H [facility] Last Admin: 08/16/17 07:54 Dose: 40 mg Metoprolol Succinate (Toprol Xl) 50 mg PO QPM [facility] Last Admin: 08/15/17 17:24 Dose: 50 mg Potassium Chloride (Klor-Con M20) 20 meq PO BID [facility] Last Admin: 08/16/17 07:37 Dose: 20 meq Sodium Chloride (Saline Flush) 10 ml FLUSH ASDIRECTED PRN PRN Reason: Keep Vein Open Last Admin: 08/16/17 08:03 Dose: 10 ml Sodium Chloride (Saline Flush) 10 ml FLUSH Q12HR [facility] Last Admin: 08/16/17 07:38 Dose: 10 ml Discontinued Medications Febuxostat (Uloric) 40 mg PO BID [facility] Last Admin: 08/13/17 17:13 Dose: 40 mg Furosemide (Lasix) 20 mg IVPUSH NOW ONE Stop: 08/13/17 15:09 Last Admin: 08/13/17 16:01 Dose: 20 mg Sodium Chloride (Normal Saline) 500 mls @ 100 mls/hr IV ASDIRECTED [facility] Azithromycin 500 mg/ Sodium (Chloride) 250 mls @ 250 mls/hr IV Q24H [facility] Last Admin: 08/15/17 15:50 Dose: 250 mls/hr Sodium Chloride (Saline Flush) 10 ml FLUSH ASDIRECTED PRN PRN Reason: Keep Vein Open Last Admin: 08/14/17 07:53 Dose: 10 ml *Q Meaningful Use (DIS) - VTE *Q VTE Criteria *Q: - Stroke *Q Stroke Criteria *Q: - AMI *Q AMI Criteria *Q:
[2017-08-16 15:34] VITALS: BP 134/80
[2017-08-16] MEDS ORDERED: cefTAZidime 1 GM Vial IVPUSH ONE (15:43)
[2017-08-16] MEDS ORDERED: Azithromycin 500 MG in Sodium Chloride 0.9% 250 ML IV ONE (15:44)
[2017-08-16] MEDS ORDERED: methylPREDNISolone Sodium Succinate 40 MG/1 ML SDV IVPUSH ONE (15:45)
[2017-08-16] MEDS ORDERED: Azithromycin 250 MG Tab PO ONE (16:00)
== END 2017-08-16 19:20 | disposition home or self-care (01) | DRG 190 ==
LOC: LL.DI 14:12 → LL.MS 14:39
PROVIDERS: ADMIT Physician Assistant; ATTEND Family Medicine
DX: J44.0 Chronic obstructive pulmonary disease with (acute) lower respiratory infection (principal); J18.9 Pneumonia, unspecified organism; J44.1 Chronic obstructive pulmonary disease with (acute) exacerbation; M79.1 Myalgia; M10.9 Gout, unspecified; R53.1 Weakness; I44.7 Left bundle-branch block, unspecified; E78.00 Pure hypercholesterolemia, unspecified; I10 Essential (primary) hypertension; Z87.891 Personal history of nicotine dependence; K21.9 Gastro-esophageal reflux disease without esophagitis; M19.90 Unspecified osteoarthritis, unspecified site; M06.9 Rheumatoid arthritis, unspecified; G62.9 Polyneuropathy, unspecified; E79.0 Hyperuricemia without signs of inflammatory arthritis and tophaceous disease; G89.29 Other chronic pain; M54.9 Dorsalgia, unspecified; Z79.82 Long term (current) use of aspirin; Z79.899 Other long term (current) drug therapy
CPT/HCPCS: 36415; 71046; 80053; 82803; 83880; 84484; 85025; 86140; 86738; 87040; 93005; 93306; 94640; A9270-GY; J0456; J0713; J1940; J2060; J2920; J7050

== ENCOUNTER 2018-02-08 21:44 | Emergency (ER) | payer MEDICARE, BC ==
[2018-02-08] MEDS ORDERED: Lidocaine 0.5% 50 ML SDV ONE ×2 (22:04→22:10)
[2018-02-08 22:15] VITALS: BP 111/61
[2018-02-08] MEDS: Bacitracin/Neomycin/Polymyxin B Oint 0.9 GM U/D Packet TOP ONE (22:18)
--- NOTE | 2018-02-08 22:23 | EDM.PDOC ---
ED HPI GENERAL MEDICAL PROBLEM - General Chief Complaint: Laceration Stated Complaint: left hand/thumb laceration Time Seen by Provider: 02/08/18 22:18 Source of Information: Reports: Patient History Limitations: Reports: No Limitations - History of Present Illness INITIAL COMMENTS - FREE TEXT/NARRATIVE: Cut base of left thumb on piece of metal Tetanus not UTD No other complains Able to move thumb and no numbness Onset: Today Duration: Minutes: Location: Reports: Upper Extremity, Left Context: Reports: Trauma - Related Data Allergies Allergy/AdvReac Type Severity Reaction Status Date / Time No Known Allergies Allergy Verified 08/13/17 18:34 Home Meds: Home Meds Aspirin 81 mg PO QAM 01/25/15 [History] Metoprolol Succinate [Toprol XL] 50 mg PO QPM 01/25/15 [History] Losartan [Cozaar] 50 mg PO DAILY 08/14/15 [History] Febuxostat [Uloric] 20 mg PO BEDTIME 11/13/16 [History] Folic Acid 1 mg PO QAM 11/13/16 [History] Leflunomide 20 mg PO QAM 11/13/16 [History] Budesonide/Formoterol Fumarate [Symbicort 80-4.5 Mcg Inhaler] 2 puff INH BID PRN 08/13/17 [History] Potassium 1 tab PO DAILY 02/08/18 [History] Past Medical History HEENT History: Reports: Impaired Vision, Other (See Below) Other HEENT History: Wears glasses Cardiovascular History: Reports: Arrhythmia, High Cholesterol, Hypertension, Other (See Below) Other Cardiovascular History: Complete right bundle branch block diagnosed on with apparent subsequent negative heart catheterization as below Respiratory History: Reports: COPD, Other (See Below) Other Respiratory History: COPD and pulmonary fibrosis by chest x-ray with no current treatment Gastrointestinal History: Reports: GERD Genitourinary History: Reports: None Musculoskeletal History: Reports: Arthritis, Back Pain, Chronic, Gout, Neck Pain , Chronic, Osteoarthritis, RA, Other (See Below) Other Musculoskeletal History: Hyperuricemia without history of gout Neurological History: Reports: Brain Injury, Concussion, Head Trauma, Neuropathy , Peripheral, Other (See Below) Other Neuro History: Head concussion at age 13 with metallic plate placed secondary to skull fracture with partial left-sided hemiparesis for about 1 week with no significant remaining deficits, 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 Psychiatric History: Reports: None, Other (See Below) 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 Endocrine/Metabolic History: Reports: Other (See Below) Other Endocrine/Metabolic History: Hyperglycemia with no previous treatment Hematologic History: Reports: Blood Transfusion(s), Other (See Below) Other Hematologic History: Blood transfusion at age 13 secondary to head trauma as above Immunologic History: Reports: None Dermatologic History: Reports: Eczema Other Dermatologic History: Eczema not currently under therapy - Infectious Disease History Infectious Disease History: Reports: C-Difficile, Chicken Pox, Measles - Past Surgical History Head Surgeries/Procedures: Reports: Other (See Below) - Past Imaging History Past Imaging History: Reports: Angiography (Heart catheterization on 01/25/15 versus 01/26/15), CAT Scan (CT of the head and sinuses on 10/10/11), Ultrasound ( Abdominal ultrasound on 07/18/07), Venous Doppler (Bilateral venous Doppler studies of the lower extremities on 04/08/15 with previous venous Doppler study of the right leg on 04/27/11) Social & Family History - Family History Family Medical History: Noncontributory Cardiac: Reports: Hypertension, Other (See Below) Other Cardiac Family History: Mother and paternal uncle with hypertension Respiratory: Reports: COPD, Other (See Below) Other Respiratory Family Hisory: Father with COPD and history of tobacco use Neurological: Reports: Parkinson's, Other (See Below) Other Neurological Family History: Paternal uncle with Parkinson's disease - Caffeine Use Caffeine Use: Reports: Soda - Living Situation & Occupation Living situation: Reports: (1972, 3 children), with Family () Occupation: Employed ([employer]) ED ROS GENERAL - Review of Systems Review Of Systems: See Below Skin: Reports: Other (left thumb laceration) ED EXAM, SKIN/RASH Exam: See Below Text/Narrative:: Base of left thumb with 8 cm V-shaped laceration on palmar side Neurovascular and tendons intact ED SKIN PROCEDURES - Laceration/Wound Repair Left Digit - 1st (Thumb) Lac/Wound length In cm: 8 Appearance: Subcutaneous Distal NVT: Neuro & Vascular Intact, No Tendon Injury Anesthetic Type: Local Local Anesthesia - Lidocaine (Xylocaine): 0.5% Plain Local Anesthetic Volume: 5cc Skin Prep: Chlorhexidine (Hibiciens), Saline Exploration/Debridement/Repair: Wound Explored Closed with: Sutures Suture Size: 3-0 # of Sutures: 7 Suture Type: Nylon Sterile Dressing Applied: Nurse Tetanus Status Addressed: Yes Complications: No Course - Vital Signs Last Recorded V/S: Last Vital Signs Temp 36.6 C 02/08/18 22:14 Pulse 65 02/08/18 22:14 Resp 16 02/08/18 22:14 BP 111/61 02/08/18 22:14 Pulse Ox 96 02/08/18 22:14 - Orders/Labs/Meds Orders: Active Orders 24 hr Category Date Time Status Vaccines to be Administered [RC] PER UNIT ROUTINE Care 02/08/18 22:15 Active Meds: Medications Discontinued Medications Generic Name Dose Route Start Last Admin Trade Name Mary Jane PRN Reason Stop Dose Admin Diphtheria/Tetanus/Acell Pertussis 0.5 ml 02/08/18 22:15 Adacel IM 02/08/18 22:16 .ONCE ONE Lidocaine HCl Confirm 02/08/18 22:04 Xylocaine-Mpf 0.5% Administered 02/08/18 22:05 Dose 50 ml .ROUTE .STK-MED ONE Neomycin/Polymyxin/Bacitracin 1 each 02/08/18 22:15 Triple Antibiotic Oint TOP 02/08/18 22:16 ONETIME ONE Departure - Departure Time of Disposition: 22:25 Disposition: Home, W Home Health Agency 06 Condition: Good Clinical Impression: Thumb laceration Qualifiers: Encounter type: initial encounter Damage to nail status: without damage Foreign body presence: without foreign body Laterality: left Qualified Code(s): S61.012A - Laceration without foreign body of left thumb without damage to nail , initial encounter - Discharge Information Instructions: Laceration Care, Adult Referrals: Neris Renee PA [Primary Care Provider] - Additional Instructions: Keep clean Sutures out in 10-14 days Follow up in clinic - My Orders Last 24 Hours: My Active Orders 02/08/18 22:15 Vaccines to be Administered [RC] PER UNIT ROUTINE - Assessment/Plan Last 24 Hours: My Active Orders 02/08/18 22:15 Vaccines to be Administered [RC] PER UNIT ROUTINE
[2018-02-08] MEDS: Diphtheria,Pertussis(Acell),Tetanus Vaccine 0.5 ML SDV IM ONE (22:25)
== END 2018-02-08 22:30 | disposition home health service (06) ==
LOC: LL.ED 21:44
DX: S61.012A Laceration without foreign body of left thumb without damage to nail, initial encounter (principal); Z79.82 Long term (current) use of aspirin; W26.8XXA Contact with other sharp object(s), not elsewhere classified, initial encounter
CPT/HCPCS: 12004; 90471; 90715; 99282; 99283

== ENCOUNTER 2019-10-22 08:17 | Emergency (ER) | payer MEDICARE, BC ==
--- NOTE | 2019-10-22 08:38 | EDM.PDOC ---
ED HPI GENERAL MEDICAL PROBLEM - General Chief Complaint: CPR in Progress Stated Complaint: cardiac arrest Time Seen by Provider: 10/22/19 08:17 Source of Information: Reports: EMS - History of Present Illness INITIAL COMMENTS - FREE TEXT/NARRATIVE: Patient brought in by EMS after family found patient apneic at home this morning. recalls that patient made "a weird noise" around 5am but appeared to go back to sleep and she thought nothing of it. This morning he was found by family to be unresponsive and with to respiratory effort. Family started CPR and called EMS. said patient was usual self these recent weeks. No known Covid exposure or Covid symptoms. He does have lengthy list of chronic medical problems. EMS able to perform compressions but not able to open patient' s jaw for airway due to rigor mortis. They called the hospital to give report and were advised to d/c CPR given the downtime and rigor mortis. Declared at 0757 while en route. - Related Data Allergies Allergy/AdvReac Type Severity Reaction Status Date / Time No Known Allergies Allergy Verified 02/08/18 23:18 Home Meds: Home Meds Aspirin 81 mg PO QAM 01/25/15 [History] Metoprolol Succinate [Toprol XL] 50 mg PO QPM 01/25/15 [History] Losartan [Cozaar] 50 mg PO DAILY 08/14/15 [History] Febuxostat [Uloric] 20 mg PO BEDTIME 11/13/16 [History] Folic Acid 1 mg PO QAM 11/13/16 [History] Leflunomide 20 mg PO QAM 11/13/16 [History] Budesonide/Formoterol Fumarate [Symbicort 80-4.5 MCG] 2 puff INH BID PRN [History] Potassium 1 tab PO DAILY 02/08/18 [History] Past Medical History HEENT History: Reports: Impaired Vision, Other (See Below) Other HEENT History: Wears glasses Cardiovascular History: Reports: Arrhythmia, High Cholesterol, Hypertension, Other (See Below) Other Cardiovascular History: Complete right bundle branch block diagnosed on with apparent subsequent negative heart catheterization as below Respiratory History: Reports: COPD, Other (See Below) Other Respiratory History: COPD and pulmonary fibrosis by chest x-ray with no current treatment Gastrointestinal History: Reports: GERD Genitourinary History: Reports: None Musculoskeletal History: Reports: Arthritis, Back Pain, Chronic, Gout, Neck Pain , Chronic, Osteoarthritis, RA, Other (See Below) Other Musculoskeletal History: Hyperuricemia without history of gout Neurological History: Reports: Brain Injury, Concussion, Head Trauma, Neuropathy , Peripheral, Other (See Below) Other Neuro History: Head concussion at age 13 with metallic plate placed secondary to skull fracture with partial left-sided hemiparesis for about 1 week with no significant remaining deficits, 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 Psychiatric History: Reports: None, Other (See Below) 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 Endocrine/Metabolic History: Reports: Other (See Below) Other Endocrine/Metabolic History: Hyperglycemia with no previous treatment Hematologic History: Reports: Blood Transfusion(s), Other (See Below) Other Hematologic History: Blood transfusion at age 13 secondary to head trauma as above Immunologic History: Reports: None Dermatologic History: Reports: Eczema Other Dermatologic History: Eczema not currently under therapy - Infectious Disease History Infectious Disease History: Reports: C-Difficile, Chicken Pox, Measles - Past Surgical History Head Surgeries/Procedures: Reports: Other (See Below) - Past Imaging History Past Imaging History: Reports: Angiography (Heart catheterization on 01/25/15 versus 01/26/15), CAT Scan (CT of the head and sinuses on 10/10/11), Ultrasound ( Abdominal ultrasound on 07/18/07), Venous Doppler (Bilateral venous Doppler studies of the lower extremities on 04/08/15 with previous venous Doppler study of the right leg on 04/27/11) Social & Family History - Family History Family Medical History: Noncontributory Cardiac: Reports: Hypertension, Other (See Below) Other Cardiac Family History: Mother and paternal uncle with hypertension Respiratory: Reports: COPD, Other (See Below) Other Respiratory Family Hisory: Father with COPD and history of tobacco use Neurological: Reports: Parkinson's, Other (See Below) Other Neurological Family History: Paternal uncle with Parkinson's disease - Caffeine Use Caffeine Use: Reports: Soda - Living Situation & Occupation Living situation: Reports: (1972, 3 children), with Family () Occupation: Employed ([employer]) ED ROS GENERAL - Review of Systems Review Of Systems: Unable To Obtain Reason Not Obtained: ED EXAM, GENERAL - Physical Exam Exam: Not Obtained Reason Not Obtained: Course - Re-Assessments/Exams Free Text/Narrative Re-Assessment/Exam: 10/22/19 08:38 Patient placed in room 107 so that family can visit. home will be notified. Departure - Departure Time of Disposition: 08:38 Disposition: 20 Clinical Impression: Cardiac arrest - Discharge Information *PRESCRIPTION DRUG MONITORING PROGRAM REVIEWED*: Not Applicable *COPY OF PRESCRIPTION DRUG MONITORING REPORT IN PATIENT SHAHZAD: Not Applicable
== END 2019-10-22 10:20 | disposition expired ==
LOC: LL.ED 08:17
DX: I46.9 Cardiac arrest, cause unspecified (principal); I10 Essential (primary) hypertension; J44.9 Chronic obstructive pulmonary disease, unspecified; Z79.899 Other long term (current) drug therapy
CPT/HCPCS: 99285